=== PATIENT | male | born 1940 | race Caucasian/White ===

== ENCOUNTER 2018-05-30 11:36 | Emergency (ER) | payer MEDICARE, MEDICAID ==
[~2018-05-30] VITALS: Ht 172.7 cm; Wt 59.0 kg
[~2018-05-30 11:36] MED LIST: ACETAMINOPHEN650 M5 PO; ALDACTONE25 MG PO; APAP650 PO; ASPIRIN81 M2 PO; BAYER CHEWABLE81 MG PO; CARVEDILOL3.125 MG PO; CEPACOL SORE T1 EAC7 PO; CLOPIDOGREL75 MG PO; COLACE100 MG PO; COMBIGAN EYE DR10 ML OP; DIFLUCAN10 MG/ML PO; DUREZOL5 ML OPHTHALMIC; IBUPROFEN 200200 M1 PO; KEFLEX500 MG PO; LASIX 40 MG TAB40 M2 PO; LEVAQUIN 500 M500 M2 PO; LIPITOR 20 MG T20 M1 PO; LISINOPRIL2.5 MG PO; MUCINEX TA600 MG/TA2 PO; NITROGLYCERIN0.4 MG SL; PLAVIX 300 MG300 M1 PO; POTASSIUM20 PO; TESSALON PERLE100 M1 PO; TRAVATAN Z5 ML OP; TRAVATAN Z5 ML OPHTHALMIC; TYLENOL325 MG PO; ZOCOR40 MG PO
[2018-05-30] MEDS ORDERED: ASPIR 8181 MG PO (12:22)
[2018-05-30] MEDS ORDERED: POTASSIUM20 PO (12:23)
[2018-05-30] MEDS ORDERED: LASIX 40 MG TAB40 M2 PO (12:24)
[2018-05-30] MEDS ORDERED: NITROGLYCERIN0.4 MG SUBLING (12:26)
[2018-05-30] MEDS ORDERED: STOOL SOFTENER1 EAC3 PO (12:26)
[2018-05-30 14:05] VITALS: BP 129/73
== END 2018-05-30 14:06 | disposition home or self-care (01) ==
LOC: M.ERS 11:36
DX: S90.415A Abrasion, left lesser toe(s), initial encounter (principal); S90.31XA Contusion of right foot, initial encounter; E78.5 Hyperlipidemia, unspecified; I10 Essential (primary) hypertension; Z90.49 Acquired absence of other specified parts of digestive tract; W20.8XXA Other cause of strike by thrown, projected or falling object, initial encounter; Y93.89 Activity, other specified; Y92.89 Other specified places as the place of occurrence of the external cause; Y99.8 Other external cause status

== ENCOUNTER 2018-10-18 17:15 | Inpatient (IN) | payer OTHER, MEDICAID ==
[~2018-10-18] VITALS: Ht 172.7 cm; Wt 57.2 kg
--- NOTE | ~2018-10-18 | EKG ---
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1940 Requested By: David Thomas Order Number: [id number] Reading MD: Measurements Intervals [place] Rate: 52 P: -52 ID: 157 QRS: -55 QRSD: 111 T: 106 QT: 433 QTc: 403 Interpretive Statements Sinus or ectopic atrial rhythm Atrial premature complex Left anterior fascicular block Posterior infarct, old Anteroseptal infarct, old Borderline repolarization abnormality Compared to ECG 07/17/2015 22:31:23 Ectopic atrial rhythm now present Atrial premature complex(es) now present Left anterior fascicular block now present Sinus rhythm no longer present Left-axis deviation no longer present ST (T wave) deviation no longer present Possible ischemia no longer present Myocardial infarct finding still present [email or web address] By: 0 0 Epiphany MD Anderson /SUMEET
[~2018-10-18 17:15] MED LIST changes: +ASPIR 8181 MG PO; +NITROGLYCERIN0.4 MG SUBLING; +STOOL SOFTENER1 EAC3 PO
[2018-10-18 17:19] VITALS: BP 143/74
[2018-10-18] MEDS ORDERED: SINGULAIR 10 MG10 M1 PO (17:26)
[2018-10-18] MEDS ORDERED: ALLERGY25 M2 PO (17:27)
[2018-10-18 17:35] LABS: ABSOLUTE EOSINOPHILS 0.1 thou/uL (0.0-0.7); ABSOLUTE LYMPHOCYTES 1.1 thou/uL (0.8-5.3); ABSOLUTE MONOCYTES 0.4 thou/uL (0.0-1.2); ABSOLUTE NEUTROPHILS 3.4 thou/uL (1.6-8.1); BASOPHILS 0.7 %; EOSINOPHILS 2.6 %; HEMATOCRIT 40.1 % (42.0-52.0); HEMOGLOBIN 13.5 gm/dL (14.0-18.0); LYMPHOCYTES 21.3 %; MCHC 33.8 g/dL (28.0-37.0); MCV 94.7 fL (80.0-100.0); MONOCYTES 7.9 %; MPV 7.7 fl. (7.2-11.1); NUCLEATED RBCS 0 /100WBC; PLATELET COUNT* 165 thou/uL (150-400); POLYS 67.5 %; RBC 4.23 mil/uL (4.50-6.00); RDW-CV 14.7 % (10.5-14.5)
[2018-10-18 17:50] LABS: ANION GAP 9 mmol/L (7-16); BUN 16 mg/dL (7-18); CHLORIDE 99 mmol/L (98-107); CO2 32 mmol/L (21-32); CREATININE 1.4 mg/dL (0.6-1.3); GLUCOSE 95 mg/dL (70-99); POTASSIUM 3.8 mmol/L (3.5-5.1); SODIUM 140 mmol/L (136-145)
[2018-10-18 18:09] LABS: APTT 26.2 Seconds (25.0-31.3); INR 1.1
[2018-10-18 18:11] LABS: ALBUMIN 4.6 g/dL (3.4-5.0); ALKALINE PHOSPHATASE 95 U/L (46-116); CK-MB MASS 1.5 ng/mL (<0.5-3.6); LIPASE 172 U/L (73-393); MAGNESIUM 2.2 mg/dL (1.8-2.4); NT-PRO BRAIN NAT PEPTIDE 2048 pg/mL (<300); SGOT 19 U/L (15-37); SGPT 18 U/L (30-65); TOTAL BILIRUBIN 0.4 mg/dL (<0.1-1.0); TROPONIN-I LEVEL <0.06 ng/mL (<0.06)
[2018-10-18 19:45] VITALS: BP 134/64
[2018-10-18 20:10] VITALS: BP 135/69
[2018-10-18 23:45] VITALS: BP 123/61
[2018-10-19 04:00] VITALS: BP 128/68
[2018-10-19 05:24] LABS: CHOLESTEROL 145 mg/dL (<200); HDL CHOLESTEROL 65 mg/dL (>40); LDL CHOLESTEROL 70 mg/dL (<100); TC:HDL 2.2 Ratio (Not establshd); TRIGLYCERIDE 50 mg/dL (<150); VLDL 10 mg/dL (<40)
[2018-10-19 05:28] LABS: SERUM ASSESSMENT CLEAR
[2018-10-19 12:00] VITALS: BP 115/56
[2018-10-19 16:00] VITALS: BP 121/55
[2018-10-19 20:00] VITALS: BP 121/60
[2018-10-20] VITALS: BP 107/53
[2018-10-20 02:05] LABS: GLYCOHEMOGLOBIN (HGB A1C) 5.7 % (4.8-5.6)
[2018-10-20 04:00] VITALS: BP 126/47
[2018-10-20 05:22] LABS: HEMATOCRIT 34.3 % (42.0-52.0); HEMOGLOBIN 11.9 gm/dL (14.0-18.0); MCH 32.6 pg (26.0-34.0); MCHC 34.5 g/dL (28.0-37.0); MCV 94.4 fL (80.0-100.0); MPV 8.2 fl. (7.2-11.1); RBC 3.64 mil/uL (4.50-6.00); RDW-CV 14.1 % (10.5-14.5); WBC 6.5 thou/uL (4.0-11.0)
[2018-10-20 06:09] LABS: ANION GAP 7 mmol/L (7-16); BUN 17 mg/dL (7-18); CALCIUM 8.5 mg/dL (8.5-10.1); CHLORIDE 103 mmol/L (98-107); CO2 31 mmol/L (21-32); CREATININE 1.2 mg/dL (0.6-1.3); GLUCOSE 74 mg/dL (70-99); MAGNESIUM 2.1 mg/dL (1.8-2.4); POTASSIUM 4.1 mmol/L (3.5-5.1); SODIUM 141 mmol/L (136-145); TROPONIN-I LEVEL <0.06 ng/mL (<0.06)
--- NOTE | 2018-10-20 11:05 | CON ---
[address] [address] CONSULTATION Name: JAMEEL SHAH Room: [address] IN M.R.#: [id number] Admission: 10/18/18 Attend Phys: David Thomas MD Discharge: Date of : 36 Report #: [id number] THIS REPORT FOR: //name// CC: Raf Mike [facility] physician/PCP David Thomas DATE OF SERVICE: 10/19/2018 CARDIOLOGY CONSULTATION HISTORY OF PRESENT ILLNESS: I was asked by Dr. Thomas to see this 78-year-old white male in cardiology consultation for evaluation and treatment of chest pain, which could represent angina. This man has known coronary artery disease. He is status post multiple coronary stents. Unfortunately, he is a poor historian. Additionally, this man has essential hypertension, hyperlipidemia and a small descending thoracic aortic aneurysm. That aneurysm is minimally larger than it was when it was checked in the not too distant past. He came to the Emergency Room last night with about an hour of chest pain. He said it was worse with taking deep breaths. He had walked outside in the cold to get his mail and walked about 100 feet to the mailbox and 100 feet back. The pain he said started in the left upper chest and radiated downward to me. He could not describe the pain particularly, but it did have a sharp quality, but then also a pressure quality, was of 5 of 10 in severity. There was no diaphoresis. There was some shortness of breath. There was no nausea or vomiting. His reported a pulse in the 40s with normal O2 sat during the event, but he was cold. His pain was relieved by the time he got to the Emergency Room. He did not try nitroglycerin. He is not sure if this pain is like previous heart pain or not. PAST MEDICAL HISTORY: As described above. ALLERGIES: He has no known allergies. MEDICATIONS: Include aspirin 81 mg daily, atorvastatin 20 mg daily, Plavix 75 mg daily, Benadryl 25 mg daily, Lasix 40 mg on Sunday, Sunday, Sunday for edema. He also takes potassium 20 mEq 3 times a week with that. He is on Mucinex 600 mg daily, lisinopril 2.5 mg daily, Singulair 10 mg at bedtime, and docusate 1 tablet daily. REVIEW OF SYSTEMS: Negative except as per the history of present illness and past medical history. His chest x-ray was negative. Please see review of system form for details and negatives in review of systems. He had multiple negative troponins, I believe 3 or 4. SOCIAL HISTORY: He has a past history of smoking. [place] [address] CONSULTATION Name: JAMEEL SHAH Room: [address] IN [facility]#: [id number] Admission: 10/18/18 Attend Phys: David Thomas MD Discharge: Date of : 36 Report #: [id number]. Does not drink, does not use illegal drugs. FAMILY HISTORY: Unremarkable. He does have chronic kidney disease stage 3 and prediabetes according to the record. He is said to have had bypass graft surgery in the past with 4 vessels bypassed. He is usually followed by Dr. Mike. PHYSICAL EXAMINATION: VITAL SIGNS: Pulse was 49 and regular, blood pressure 128/68, respirations 16 and regular, temperature 97.9. When I examined him; however, his pulse was 60 and regular. HEENT: Head was atraumatic. Eyes were clear. NECK: Supple. There is no jugular venous distention or hepatojugular reflux. Thyroid is not enlarged. There is no adenopathy. SKIN: Warm and dry. Mucous membranes are moist. LUNGS: Clear to auscultation and percussion. HEART: Revealed normal first and second heart sound. There is soft S4. There is no S3. There are no murmurs, rubs, thrills, heaves or gallops. PMI is nondisplaced. ABDOMEN: Soft, flat, nontender, no palpable masses, no organomegaly. EXTREMITIES: Reveal no cyanosis, clubbing or edema. NEUROLOGIC: The patient mentated normally, talked normally, moved all extremities normally. LABORATORY DATA: His initial EKG when he came to the ER showed sinus rhythm with atrial premature beats. There is an old anteroseptal infarct, probable left anterior fascicular block, left axis deviation, left ventricular hypertrophy and nonspecific ST-T abnormalities. These could be due to ischemia or to his left ventricular hypertrophy. Several EKGs have been done. They all show essentially the same thing. IMPRESSION: 1. Chest pain, possibly angina. 2. Coronary artery disease. 3. Status post coronary stents. 4. Status post bypass graft surgery. 5. Essential hypertension. 6. Hyperlipidemia. 7. Thoracic descending aortic aneurysm. RECOMMENDATION: He should have a nuclear stress test and an echo. Thank you very much for asking me to see the patient. If you have any [address] [address] CONSULTATION Name: JAMEEL SHAH Room: [address] IN .R.#: [id number] Admission: 10/18/18 Attend Phys: David Thomas MD Discharge: Date of : 36 Report #: [id number] questions, please feel free to contact me. Note this man had pains like this last winter in the cold weather. <ELECTRONICALLY SIGNED> By: Hussain Ramirez MD, FACC 10/20/18 1105 [id number]. Derick Ramirez MD, FACC /nt
--- NOTE | 2018-10-20 11:08 | EKG ---
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: : 1940 Requested By: Renato Castillo Order Number: [id number] MD: Uriel Olmos Measurements Intervals [place] Rate: 66 P: 37 ND: 161 QRS: -51 QRSD: 109 T: 93 QT: 409 QTc: 429 Interpretive Statements Sinus rhythm Atrial premature complexes Probable left atrial enlargement Left anterior fascicular block LVH with secondary repolarization abnormality Probable anterior infarct, age indeterminate Compared to ECG 07/17/2015 22:31:23 Atrial premature complex(es) now present Left anterior fascicular block now present Left ventricular hypertrophy now present Early repolarization now present Myocardial infarct finding still present Electronically Signed On 10-20-2018 11:07:55 SUPERVISOR METAL FABRICATING by Uriel Olmos [email or web address] <ELECTRONICALLY SIGNED> By: Uriel Olmos MD, [facility] 10/20/18 1107 [id number] Uriel Olmos MD, [facility] /EPI
--- NOTE | 2018-10-20 11:14 | EKG ---
[place] [address] ELECTROCARDIOGRAM REPORT Name: JAMEEL SHAH Room: [address] ADM IN M.R.#: [id number] Admission: 10/18/18 Attend Phys: David Thomas MD Discharge: Date of : 36 Report #: [id number] THIS REPORT FOR: //name// [facility] Test Date: 2018-10-18 Test Time: 23:44:12 Pat Name: JAMEEL ALYSSA Department: Room: [address] Gender: M Client Care Consultant: SANTI : 1940 Requested By: Renato Castillo Order Number: [id number] Flower MD: Uriel Olmos Measurements Intervals [place] Rate: 45 P: -10 [place]: 166 QRS: -46 QRSD: 109 T: 85 QT: 461 QTc: 399 Interpretive Statements Sinus bradycardia with rare pac's Left anterior fascicular block Anteroseptal infarct, old possible Nonspecific repol abnormality, diffuse leads Compared to ECG 07/17/2015 22:31:23 Left anterior fascicular block now present Early repolarization now present Sinus rhythm no longer present ST (T wave) deviation no longer present Possible ischemia no longer present Myocardial infarct finding still present Electronically Signed On 10-20-2018 11:14:15 SOCIAL PROBLEMS SPECIALIST by Uriel Olmos [email or web address] <ELECTRONICALLY SIGNED> By: Uriel Olmos MD, [facility] 10/20/18 [id number] [id number] Uriel Olmos MD, [facility] /EPI
--- NOTE | 2018-10-20 11:16 | EKG ---
[place] [address] ELECTROCARDIOGRAM REPORT Name: JAMEEL SHAH Room: [address] ADM IN M.R.#: [id number] Admission: 10/18/18 Attend Phys: David Thomas MD Discharge: Date of : 36 Report #: [id number] THIS REPORT FOR: //name// [facility] Test Date: 2018-10-19 Test Time: 05:31:58 Pat Name: JAMEEL SHAH Department: Room: [address] Gender: M Caustic Preparer: LHUPP : 1940 Requested By: Renato Castillo Order Number: [id number] Reading MD: Uriel Olmos Measurements Intervals [place] Rate: 52 P: -52 [place]: 157 QRS: -55 QRSD: 111 T: 106 QT: 433 QTc: 403 Interpretive Statements Sinus rhythm Atrial premature complex, Left anterior fascicular block Possible old anteroseptal CT Borderline repolarization abnormality Compared to ECG 07/17/2015 22:31: Atrial premature complex(es) now present Left anterior fascicular block now present Left-axis deviation no longer present ST (T wave) deviation no longer present Possible ischemia no longer present Myocardial infarct finding still present Electronically Signed On 10-20-2018 11:16:12 TECHNICAL SUPPORT ENGINEER by Uriel Olmos [email or web address] <ELECTRONICALLY SIGNED> By: Uriel Olmos MD, [facility] 10/20/18 1116 0531 Uriel Olmos MD, [facility] /EPI
[2018-10-20 12:46] VITALS: BP 99/68
[2018-10-20 15:59] VITALS: BP 119/92
[2018-10-20 19:32] VITALS: BP 136/71
[2018-10-21] VITALS (7 sets, daily range): BP systolic 107–125; BP diastolic 57–68
[2018-10-21 04:44] LABS: HEMATOCRIT 32.8 % (42.0-52.0); HEMOGLOBIN 11.3 gm/dL (14.0-18.0); MCH 32.5 pg (26.0-34.0); MCHC 34.4 g/dL (28.0-37.0); MCV 94.2 fL (80.0-100.0); MPV 7.9 fl. (7.2-11.1); RBC 3.48 mil/uL (4.50-6.00); RDW-CV 14.2 % (10.5-14.5); WBC 6.9 thou/uL (4.0-11.0)
[2018-10-21 05:01] LABS: CALCIUM 8.4 mg/dL (8.5-10.1); CREATININE 1.3 mg/dL (0.6-1.3)
[2018-10-21] MEDS ORDERED: NITROGLYCERIN0.4 MG SUBLING (08:55)
[2018-10-21] MEDS ORDERED: SINGULAIR 10 MG10 M1 PO (15:36)
--- NOTE | 2018-10-21 16:44 | 2DMMODE ---
[place] [address] 2 D/M-MODE ECHOCARDIOGRAM Name: JAMEEL SHAH Room: [address] IN [facility]#: [id number] Admission: 10/18/18 Attend Phys: David Thomas, Discharge: Date of : 36 Date of Service: 10/21/18 1643 Report #: [id number] THIS REPORT FOR: //name// APPROVED REPORT Study performed: 10/21/2018 14:54:18 EXAM: Comprehensive 2D, Doppler, and color-flow Echocardiogram Patient Location: In-Patient Room #: [facility] BSA: 1.66 HR: 65 bpm BP: 115/60 mmHg Other Information Study Quality: Good Indications CAD 2D Dimensions IVSd: 10.79 (7-11mm) LVOT Diam: 20.89 (18-24mm) LVDd: 49.38 mm PWd: 10.40 (7-11mm) Ascending Ao: 32.53 (22-36mm) LVDs: 41.00 (25-40mm) Aortic Root: 30.58 mm Volumes Left Atrial Volume (Systole) LA ESV Index: 19.40 mL/m2 Aortic Valve AoV Peak Jerman.: 0.84 m/s AO Peak Gr.: 2.84 mmHg LVOT Max P.40 mmHg AO Mean Gr.: 1.65 mmHg LVOT Mean P.63 mmHg LVOT Max V: 0.59 m/s AO V2 VTI: 16.33 cm LVOT Mean V: 0.36 m/s REJI (VTI): 2.88 cm2 LVOT V1 VTI: 13.71 cm Mitral Valve E/A Ratio: 0.83 MV Decel. Time: 422.68 ms MV E Max Jerman.: 0.49 m/s MV PHT: 122.58 [place] [address] 2 D/M-MODE ECHOCARDIOGRAM Name: JAMEEL SHAH Room: [address] IN [facility].#: [id number] Admission: 10/18/18 Attend Phys: David Thomas, Discharge: Date of : 36 Date of Service: 10/21/18 1643 Report #: [id number] MVA (PHT): 1.79 cm2 TDI E/Lateral E': 3.50 E/Medial E': 6.13 Medial E' Jerman.: 0.08 m/s Lateral E' Jerman.: 0.14 m/s Pulmonary Valve PV Peak Jerman.: 0.74 m/s PV Peak Gr.: 2.19 mmHg Left Ventricle Left ventricle is mildly dilated. There is diffuse hypokinesis of left ventricular wall motion with inferoapical akinesis. There is normal left ventricular wall thickness. Left ventricular systolic function is moderate to severely decreased. LVEF is 35%. Grade I - abnormal relaxation pattern. Right Ventricle The right ventricle is normal size. The right ventricular systolic function is normal. Atria The left atrium size is normal. The right atrium size is normal. Aortic Valve Mild aortic valve sclerosis. No aortic regurgitation is present. There is no aortic valvular stenosis. Mitral Valve The mitral valve is normal in structure. Mild mitral regurgitation. No evidence of mitral valve stenosis. Tricuspid Valve The tricuspid valve is normal in structure. There is no tricuspid valve regurgitation noted. Pulmonic Valve The pulmonary valve is normal in structure. There is no pulmonic valvular regurgitation. Great Vessels The aortic root is normal in size. IVC is normal in size and collapses >50% with [place] [address] 2 D/M-MODE ECHOCARDIOGRAM Name: JAMEEL SHAH Room: [address] IN [facility]#: [id number] Admission: 10/18/18 Attend Phys: David Thomas, Discharge: Date of : 36 Date of Service: 10/21/18 1643 Report #: [id number] There is no pericardial effusion. <Conclusion> Left ventricle is mildly dilated. There is normal left ventricular wall thickness. Left ventricular systolic function is moderate to severely decreased. LVEF is 35%. Grade I - abnormal relaxation pattern. The right ventricle is normal size. The left atrium size is normal. Mild aortic valve sclerosis. No aortic regurgitation is present. There is no aortic valvular stenosis. The mitral valve is normal in structure. Mild mitral regurgitation. IVC is normal in size and collapses >50% with inspiration. There is no pericardial effusion. There is diffuse hypokinesis of left ventricular wall motion with inferoapical akinesis. <ELECTRONICALLY SIGNED> By: Uriel Olmos MD, FACC 10/21/18 164 42 42 Uriel Olmos MD, FACC /INF
--- NOTE | 2018-10-21 17:13 | CARDNUC ---
[place] [address] CARDIAC NUCLEAR IMAGING REPORT Name: JAMEEL SHAH Room: [address] IN [facility]#: [id number] Admission: 10/18/18 Attend Phys: David Thomas, Discharge: Date of : 36 Date of Service: 10/21/18 1713 Report #: [id number] THIS REPORT FOR: //name// APPROVED REPORT Study performed: 10/19/2018 14:06:00 Indication: Chest pain, Dyspnea Patient Location: In-Patient Room #: 226 Stress Nurse: Grace Robles RN Ht: 5 ft 7 in Wt: 126 lbs BSA: 1.66 m2 HR: 59 bpm BP: 138//79 mmHg BMI: 19.73 Rhythm: NSR, APC's Medical History Medical History: HTN, Hyperlipidemia, CAD s/p CABG, CAD s/p LA, CAD s/p stent Allergies: No known drug allergies Cardiac Risk Factors: HTN, Age, Hyperlipidemia Previous Cardiac Procedures: CABG, PCI, Myocardial infarction Pretest Chest Pain Characteristics: No chest pain Exercise History: Sedentary Physical Disabilities: Knees Resting Data Rest SPECT myocardial perfusion imaging was performed in supine position 30 minutes following the intravenous injection of 10.4 mCi of Tc-99m Sestamibi. Time of rest injection: 11:15 The images were gated to evaluate regional wall motion and calculate left ventricular ejection fraction. Administration Route: IV Administration Site: Right Wrist Pharmacologic Stress Pharmacologic stress test was performed by injecting Regadenoson 0.4 mg IV push over 10-15 seconds immediately followed by the intravenous injection of 28.3 mCi of Tc-99m Sestamibi. Time of stress injection: 1245 Administration Route: IV Administration Site: Right Wrist Heart Rate at time of stress injection: 90 [place] [address] CARDIAC NUCLEAR IMAGING REPORT Name: JAMEEL SHAH Room: [address]#: [id number] Admission: 10/18/18 Attend Phys: David Thomas, Discharge: Date of : 36 Date of Service: 10/21/18 1713 Report #: [id number] Gated Stress SPECT was performed 40 minutes after stress injection. The images were gated to evaluate regional wall motion and calculate left ventricular ejection fraction. Prone imaging was performed. Stress Test Details Stress Test: Pharmacologic stress testing performed using 0.4 mg of regadenoson per 5 mL given IV over 10 seconds. HR Max Heart Rate (APMHR): 140 bpm Resting HR: 59 bpm Target HR (85% APMHR): 119 bpm Max HR Achieved: 90 bpm % of APMHR: 64 Recovery HR: 90 bpm BP Resting BP: 138/79 mmHg Max BP: 143/71 mmHg Recovery BP: 143/73 mmHg BP response to stress: Normal blood pressure response to stress. ECG Resting ECG: sinus rhythm with nonspecific ST segment depression Stress ECG: sinus rhythm with nonspecific ST segment depression ST Change: None Arrhythmia: None Recovery ECG: sinus rhythm with nonspecific ST segment depression Recovery ST Change: None Recovery Arrhythmia: None Clinical Reason for Termination: Completed protocol Stress Symptoms: None The patient tolerated Lexiscan infusion without significant symptoms. Stress ECG Conclusion The baseline 12-lead EKG shows sinus rhythm with nonspecific ST segment depression noted in the inferolateral leads. There are occasional unifocal premature ventricular contractions. EKGs obtained during and post Lexiscan infusion showed sinus [place] [address] CARDIAC NUCLEAR IMAGING REPORT Name: JAMEEL SHAH Room: [address]#: [id number] Admission: 10/18/18 Attend Phys: David Thomas, Discharge: Date of : 36 Date of Service: 10/21/18 1713 Report #: [id number] or T wave changes when compared to baseline. There were no significant stress-induced arrhythmias. Study Quality Study: Good Study Data At rest, the left ventricular ejection fraction was 32%.. Post stress, the left ventricular ejection was 30%.. TID = 0.95. Perfusion Perfusion images at rest show a moderate size severe intensity defect in the apex. There is a moderate size moderate intensity area of photopenia involving the mid anterior wall. Perfusion defects obtained post Lexiscan stress show a persistent apical defect. There is a focal persistent mid anterior wall defect. No reversible defects were identified. Wall Motion There is a septal wall motion abnormality noted consistent with prior bypass procedure. Additionally there is hypokinesis of the mid to distal anteroapical anteroseptal wall. Nuclear Conclusion ECG Findings: non-diagnostic Clinical Findings: negative for ischemia Nuclear Findings: negative for ischemia Exercise Capacity: not assessed Left Ventricular Function: abnormal Myocardial perfusion images show prior defects that appear to be fixed involving the apex and mid anterior wall possibly consistent with prior infarct. There is severe global hypokinesis with focal wall motion abnormalities as outlined above. There were no reversible defects to suggest ongoing ischemia. This appears to be at least a moderate risk study based on significant left ventricular systolic dysfunction in a pattern consistent with ischemic cardiomyopathy. <Conclusion> The baseline 12-lead EKG shows sinus rhythm with nonspecific ST segment depression noted in the inferolateral leads. There are occasional unifocal premature ventricular contractions. EKGs obtained during and post Lexiscan infusion showed sinus [place] [address] CARDIAC NUCLEAR IMAGING REPORT Name: JAMEEL SHAH Room: [address] IN [facility]#: [id number] Admission: 10/18/18 Attend Phys: David Thomas, Discharge: Date of : 36 Date of Service: 10/21/18 1713 Report #: [id number] or T wave changes when compared to baseline. There were no significant stress-induced arrhythmias. <ELECTRONICALLY SIGNED> By: Catracho Casanova MD, FACC 10/21/181712 12 12 Catracho Casanova MD, FACC /INF
[2018-10-22] VITALS: BP 130/64
[2018-10-22 04:00] VITALS: BP 101/58
[2018-10-22 08:03] VITALS: BP 120/59
[2018-10-22 09:39] VITALS: BP 120/59
--- NOTE | 2018-10-23 07:54 | CON ---
[address] [address] CONSULTATION Name: JAMEEL SHAH Room: [address]#: [id number] Admission: 10/18/18 Attend Phys: David Thomas MD Discharge: 10/22/18 Date of : 36 Report #: [id number] THIS REPORT FOR: //name// CC: Raf Mike [facility] physician/PCP David Thomas DATE OF SERVICE: 10/19/2018 REQUESTING PHYSICIAN: David Thomas MD REASON FOR CONSULTATION: Thoracoabdominal aortic aneurysm. HISTORY OF PRESENT ILLNESS: The patient is a very pleasant 78-year-old white male who presented to the ER last night with chest pain. He has undergone extensive workup including a CT angiogram to evaluate for pulmonary embolism. This was negative for pulmonary embolism, but did show new finding of descending aortic aneurysm measuring 4.5 cm in maximum diameter. This is located near the diaphragmatic hiatus. This was not present 4 years ago on previous scan. The patient's chest pain has resolved. He is currently undergoing cardiac workup. REVIEW OF SYSTEMS: A 12-point review of systems was reviewed and negative as per HPI. PAST MEDICAL HISTORY: Significant for bradycardia, chest pain, hypertension, hyperlipidemia, coronary artery disease, IA in 2013, glaucoma. PAST SURGICAL HISTORY: Significant for CABG, appendectomy, hernia repair, eye surgery for glaucoma. HOME MEDICATIONS: Include Lasix, Lipitor, Mucinex, Zestril, aspirin, K-Dur, stool softener, Singulair, Benadryl, and Plavix. ALLERGIES: No known drug allergies. SOCIAL HISTORY: The patient quit smoking 6-7 years ago when he has heart attack. Denies alcohol or drug use. PHYSICAL EXAMINATION: GENERAL: The patient is in no acute distress. He is alert and oriented. VITAL SIGNS: Afebrile. Vital signs stable. HEENT: Normocephalic, atraumatic. NECK: Supple. Carotid bruit on the left. HEART: Regular. LUNGS: Clear. ABDOMEN: Soft, nontender, [place] [address] CONSULTATION Name: JAMEEL SHAH Room: [address]#: [id number] Admission: 10/18/18 Attend Phys: David Thomas MD Discharge: 10/22/18 Date of : 36 Report #: [id number] EXTREMITIES: Warm and well perfused. He has increased pulsation of his popliteal arteries bilaterally. No abdominal pulsation to suggest aneurysm of his abdominal aorta. NEUROLOGIC: Grossly intact. 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 RECOMMENDATIONS: 1. Would not recommend surgical intervention at this time on thoracoabdominal aortic aneurysm based on size. 2. We will check abdominal duplex to rule out abdominal aortic aneurysm, although no abdominal pulsation on exam. 3. We will check bilateral lower extremity arterial duplex given increased pulsation of popliteal arteries bilaterally and propensity for popliteal aneurysms in patients with aneurysms of the abdominal and thoracic aorta. 4. We will check carotid duplex. Thank you very much for involving us in the care of this very pleasant patient. Please feel free to call me if you have any questions or concerns about the assessment and plan. <ELECTRONICALLY SIGNED> By: Gorge Chowdary DO 10/23/18 0754 1323 [id number] Kinney MD /nt
== END 2018-10-22 12:16 | disposition home or self-care (01) | DRG 682 ==
LOC: M.ERS 17:15 → M.TBA-ER 18:02 → M.2W 18:02
PROVIDERS: Family Medicine; ADMIT Internal Medicine
DX: N17.0 Acute kidney failure with tubular necrosis (principal); I50.43 Acute on chronic combined systolic (congestive) and diastolic (congestive) heart failure; I25.110 Atherosclerotic heart disease of native coronary artery with unstable angina pectoris; I71.6 Thoracoabdominal aortic aneurysm, without rupture; J98.01 Acute bronchospasm; H40.9 Unspecified glaucoma; J44.9 Chronic obstructive pulmonary disease, unspecified; E78.5 Hyperlipidemia, unspecified; I12.9 Hypertensive chronic kidney disease with stage 1 through stage 4 chronic kidney disease, or unspecified chronic kidney disease; N18.3 Chronic kidney disease, stage 3 (moderate); R73.03 Prediabetes; Z79.899 Other long term (current) drug therapy; Z95.1 Presence of aortocoronary bypass graft; Z95.5 Presence of coronary angioplasty implant and graft; I25.2 Old myocardial infarction; Z90.49 Acquired absence of other specified parts of digestive tract; Z79.82 Long term (current) use of aspirin

== ENCOUNTER 2018-10-30 12:38 | Inpatient (IN) | payer OTHER, MEDICAID ==
[~2018-10-30] VITALS: Ht 172.7 cm; Wt 54.0 kg
[~2018-10-30 12:38] MED LIST changes: +ALLERGY25 M2 PO; +SINGULAIR 10 MG10 M1 PO
[2018-10-30 12:51] VITALS: BP 116/63
[2018-10-30] MEDS ORDERED: MUCINEX D ER 61 EACH PO (13:00)
[2018-10-30 13:24] LABS: HEMATOCRIT 33.2 % (42.0-52.0); HEMOGLOBIN 11.4 gm/dL (14.0-18.0); MCH 32.1 pg (26.0-34.0); MCHC 34.4 g/dL (28.0-37.0); MCV 93.5 fL (80.0-100.0); MPV 7.2 fl. (7.2-11.1); NUCLEATED RBCS 0 /100WBC; PLATELET COUNT* 160 thou/uL (150-400); RBC 3.55 mil/uL (4.50-6.00); WBC 7.9 thou/uL (4.0-11.0)
[2018-10-30 13:33] LABS: CALCIUM 8.6 mg/dL (8.5-10.1); CREATININE 1.5 mg/dL (0.6-1.3)
[2018-10-30 13:37] LABS: ALBUMIN 3.4 g/dL (3.4-5.0); TOTAL BILIRUBIN 0.6 mg/dL (<0.1-1.0); TOTAL PROTEIN 6.6 g/dL (6.4-8.2)
[2018-10-30 13:43] LABS: INFLUENZA A ANTIGEN None Detected (None Detect); INFLUENZA B ANTIGEN None Detected (None Detect)
[2018-10-30 14:05] LABS: ABSOLUTE LYMPHOCYTES 0.4 thou/uL (0.8-5.3); ABSOLUTE MONOCYTES 0.5 thou/uL (0.0-1.2); OVALOCYTES 1+; PLATELET ESTIMATE ADEQUATE
[2018-10-30 14:06] LABS: POIKILOCYTOSIS Occasional
[2018-10-30 14:21] LABS: NT-PRO BRAIN NAT PEPTIDE 3230 pg/mL (<300); TROPONIN-I LEVEL <0.06 ng/mL (<0.06)
[2018-10-30 19:21] VITALS: BP 98/52
[2018-10-30 19:40] VITALS: BP 109/57
[2018-10-31] VITALS: BP 100/52
--- NOTE | 2018-10-31 02:29 | NUR ---
TRANSFER FROM ED AT 1940 RECIEVED REPORT AND ASSUMED CARE AT THAT TIME. DIE TECHNICIAN IN PLACE. VITAL SIGNS STABLE. PT UP WITH ASSIST X 1. PT DENIED ANY PAIN. ASSESSMENT COMPLETED, DISCUSSED PLAN OF CARE, AND PT UNDERSTANDS. BED LOCKED, AND CALL LIGHT WITHIN REACH. FALL PRECAUTIONS IN PLACE. HOURLY ROUNDING DONE AND ALL NEEDS MET. PT RUNNING LOW FEVER AND PRN MEDS GIVEN FOR FEVER. NURSING WILL CONTINUE TO MONITOR.
[2018-10-31 04:00] VITALS: BP 95/53
[2018-10-31 07:31] LABS: URINE BILIRUBIN NEGATIVE (Negative); URINE BLOOD 1+ (Negative); URINE CLARITY CLEAR; URINE COLOR YELLOW; URINE GLUCOSE-RANDOM NEGATIVE (Negative); URINE KETONES NEGATIVE (Negative); URINE LEUKOCYTES-REFLEX NEGATIVE (Negative); URINE NITRITE-REFLEX NEGATIVE (Negative); URINE PROTEIN TRACE (Negative); URINE SPECIFIC GRAVITY 1.025 (1.005-1.030); URINE UROBILINOGEN 0.2 E.U./dl (0.2-1.0)
[2018-10-31 07:59] LABS: BACTERIA-REFLEX 1-9 Few /HPF (None Seen); CASTS None Seen /LPF (None Seen); CRYSTALS None Seen /LPF (None Seen); MUCUS 4-6 Moderate strn/LPF (None Seen); SQUAMOUS 4-10 Moderate /LPF (0-3); URINE RBC 3-10 Few /HPF (0-2); URINE WBC-REFLEX 0-5 Rare /HPF (0-5)
[2018-10-31 08:00] VITALS: BP 105/54
--- NOTE | 2018-10-31 10:26 | NUR ---
Pt is A&O. Resides at home alone. Independent with ADLs. Pt stated that he is able to prepare light meals and completes light house cleaning. Pt does not drive any longer post a heart attack. Pt stated that his cousin, Feli, is supportive and involved in POC. Feli provides all transportation and sets up Pt's meds. Feli also takes Pt out to dinner several nights/week. Pt stated that he also has many friends in the apartment complex that he resides in. Pt uses a walking stick for mobility. Hx of HH, but does not recall with which agency. Hx of cardiac rehab. Goal is home at ok, Pt open to HH if needed.
[2018-10-31 12:17] VITALS: BP 89/53
--- NOTE | 2018-10-31 12:19 | NUR ---
VSS, ASSUMED CARE THIS AM, ASSESSMENT PEROFRMED AND CHARTED, FALL PRECAUTIONS IN PLACE AND CALL LIGHT IN REACH, PT IS A&O4, UP WITH ONE TO BEDSIDE, PT IS ON RA, TRACING SR ON THE MONITOR, PT GAOL IS TO IMPROVE BREATHING AND SIT UP IN CHAIR, WORK WITH PT/OT. PT HAS A DRY COUGH, WILL FOLLOW WITH PLAN OF CARE.
[2018-10-31 15:51] VITALS: BP 97/49
--- NOTE | 2018-10-31 16:31 | EKG ---
[place] [address] ELECTROCARDIOGRAM REPORT Name: JAMEEL SHAH Room: [address] ADM IN M.R.#: [id number] Admission: 10/30/18 Attend Phys: Bradley Gale MD Discharge: Date of : 36 Report #: [id number] THIS REPORT FOR: //name// [facility] ED Test Date: 2018-10-30 Test Time: 14:06:21 Pat Name: JAMEEL SHAH Department: Room: [facility] Gender: M Final Assembly And Packing Supervisor: NATHANAEL : 1940 Requested By: Alexus Benavidez Order Number: [id number] MD: Uriel Olmos Measurements Intervals [place] Rate: 67 P: -54 MT: 155 QRS: -57 QRSD: 111 T: 106 QT: 380 QTc: 401 Interpretive Statements Ectopic atrial rhythm Multiple premature complexes, vent & supraven Left anterior fascicular block Posterior infarct, old Anteroseptal infarct, old posssible Repol abnrm suggests ischemia, anterolateral Baseline wander in lead(s) V1 Compared to ECG 10/19/2018 05:31:58 Ectopic atrial rhythm now present Possible ischemia now present Sinus rhythm no longer present Myocardial infarct finding still present Electronically Signed On 10-31-2018 16:30:46 REFRIGERATOR GLAZIER by Uriel Olmos [email or web address] <ELECTRONICALLY SIGNED> By: Uriel Olmos MD, [facility] 10/31/18 1630 1406 1406 Uriel Olmos MD, [facility] /EPI
--- NOTE | 2018-10-31 18:04 | NUR ---
VSS, PT HAS PROGRESSED TOWARD GOAL, HAS WORKED WITH PT/OT, HAS BEEN UP IN CHAIR, CHART CHECKED AND HOURLY ROUNDS COMPLETED.
[2018-10-31 20:00] VITALS: BP 118/59
[2018-11-01] VITALS: BP 108/42
[2018-11-01 04:00] VITALS: BP 120/64
--- NOTE | 2018-11-01 05:18 | NUR ---
ASSUMED PT CARE @ 1930. PT C/O SORE THROAT R/T COUGH. TYLENOL AND TESSALON PEARLS GIVEN. PT HAD LOW GRADE TEMP AT MIDNIGHT. VSS @ 0400. STANDBY ASSIST WHEN PT USES URINAL PT PREFERS TO STANDUP AND USES WALKER. PT ONLY SLEPT A COUPLE OF HOURS BUT REPORTED "I GOT SOME REALLY GOOD SLEEP LAST NIGHT." PT HAS HAD DRY COUGH OFF AND ON AND STATES "I HAVEN'T BEEN ABLE TO COUGH ANYTHING UP." PT IS CURRENTLY WATCHING NEWS AND DRINKING COFFEE. CALL LIGHT IN REACH. HOURLY ROUNDING FOR SAFEFTY.
[2018-11-01 08:11] VITALS: BP 111/60
[2018-11-01 08:45] LABS: HEMATOCRIT 37.4 % (42.0-52.0); HEMOGLOBIN 13.1 gm/dL (14.0-18.0); MCH 32.6 pg (26.0-34.0); MCHC 35.1 g/dL (28.0-37.0); MCV 92.6 fL (80.0-100.0); MPV 8.1 fl. (7.2-11.1); RBC 4.04 mil/uL (4.50-6.00); RDW-CV 14.4 % (10.5-14.5); WBC 10.4 thou/uL (4.0-11.0)
[2018-11-01 08:55] LABS: CALCIUM 8.7 mg/dL (8.5-10.1); CREATININE 1.4 mg/dL (0.6-1.3); MAGNESIUM 1.9 mg/dL (1.8-2.4); POTASSIUM 3.6 mmol/L (3.5-5.1)
--- NOTE | 2018-11-01 10:42 | NUR ---
[facility] is able to accept Pt for HH. If Pt dc over the weekend, fax orders to [phone].
[2018-11-01 12:00] VITALS: BP 91/53
[2018-11-01 16:00] VITALS: BP 84/47
[2018-11-01 20:00] VITALS: BP 106/57
[2018-11-02 00:15] VITALS: BP 96/52
[2018-11-02 04:00] VITALS: BP 97/73
[2018-11-02 04:53] LABS: HEMATOCRIT 32.7 % (42.0-52.0); HEMOGLOBIN 11.2 gm/dL (14.0-18.0); MCH 31.6 pg (26.0-34.0); MCHC 34.3 g/dL (28.0-37.0); MCV 92.3 fL (80.0-100.0); MPV 7.7 fl. (7.2-11.1); RBC 3.54 mil/uL (4.50-6.00); RDW-CV 14.3 % (10.5-14.5); WBC 6.8 thou/uL (4.0-11.0)
[2018-11-02 05:13] LABS: ALBUMIN 2.4 g/dL (3.4-5.0); CREATININE 1.3 mg/dL (0.6-1.3); MAGNESIUM 1.9 mg/dL (1.8-2.4); TOTAL BILIRUBIN 0.4 mg/dL (<0.1-1.0); TOTAL PROTEIN 5.1 g/dL (6.4-8.2)
--- NOTE | 2018-11-02 06:55 | NUR ---
ASSUMED PT CARE @ 1930. PT A+0 X 4. PT REPORTS COUGH BUT NO SOA REPORTED OR OBSERVED. DR NOTIFIED PT HAD DIFFICULTY SLEEPING LAST NIGHT. SLEEP MED ORDERED BUT PT FELL ASLEEP BEFORE NIGHT MED GIVEN. PT DID HAVE LOW GRADE TEMP THIS AM. TYLENOL GIVEN. PT TRACING SA THROUGHOUT SHIFT, CALL LIGHT IN REACH. HOURLY ROUNDING FOR SAFETY.
[2018-11-02 08:15] VITALS: BP 114/66
[2018-11-02 11:52] VITALS: BP 103/58
[2018-11-02 16:00] VITALS: BP 101/63
--- NOTE | 2018-11-02 18:03 | NUR ---
ASSUMED PT CARE AT 0730, FULL ASSESMENT DONE CHARTED. PT A/O X4, IS [place] AND BLIND, PT ABLE TO SEE SOME, PT HELPED TO EAT, UP WITH SBA, SR/PVC/PAC/BBB ON THE MONITOR. VSS, AFEBRILE THIS SHIFT, ON RA, SATS 93%. PT STATES HE IS "FEELING BETTER TODAY", WALKING IN [place] WITH STAFF. FALL PRECAUTIONS IN PLACE, USES CALL LIGHT APPRIATLY.
[2018-11-02 19:56] VITALS: BP 99/62
[2018-11-03] VITALS (7 sets, daily range): BP systolic 95–118; BP diastolic 55–65
--- NOTE | 2018-11-03 03:40 | NUR ---
ASSUMED PT CARE @ 1930. PT A+OX4. PT DENIES SOA. ABLE TO HAVE A PRODUCTIVE COUGH- SPUTUM SAMPLE SENT TO LAB. PT WAS GIVEN TYLENOL FOR SORE THROAT AND MELATONIN FOR SLEEP. SLEPT OFF AND ON THROUGH SHIFT. CALL LIGHT IN REACH. HOURLY ROUNDING FOR SAFETY.
[2018-11-03 05:00] LABS: HEMATOCRIT 30.3 % (42.0-52.0); HEMOGLOBIN 10.4 gm/dL (14.0-18.0); MCH 31.9 pg (26.0-34.0); MCHC 34.4 g/dL (28.0-37.0); MCV 92.7 fL (80.0-100.0); MPV 8.1 fl. (7.2-11.1); RBC 3.27 mil/uL (4.50-6.00); RDW-CV 14.3 % (10.5-14.5); WBC 5.6 thou/uL (4.0-11.0)
[2018-11-03 05:15] LABS: ALBUMIN 2.2 g/dL (3.4-5.0); CREATININE 1.2 mg/dL (0.6-1.3); MAGNESIUM 1.9 mg/dL (1.8-2.4); POTASSIUM 3.4 mmol/L (3.5-5.1); TOTAL BILIRUBIN 0.3 mg/dL (<0.1-1.0); TOTAL PROTEIN 5.4 g/dL (6.4-8.2)
--- NOTE | 2018-11-03 16:54 | NUR ---
I ASSUMED CARE OF THE PATIENT AT 0700. HE IS ALERT AND ORIENTED X4 AND IS UP WITH ASSIST OF ONE. BED IS IN THE LOW LOCKED POSITION AND CALL LIGHT IS IN REACH. HOURLY ROUNDING WAS COMPLETED AND PATIENT NEEDS ARE MET. PAIN IS DENIED. PATIENT NEEDS HELP WITH TRAY FOR SETUP ONLY. PATIENT HAS BEEN AFEBRILE ALL DAY. POTASSIUM WAS REPLACED. WILL CONTINUE TO MONITOR.
[2018-11-04 04:00] VITALS: BP 111/63
--- NOTE | 2018-11-04 04:54 | NUR ---
REPORT RECEIVED FROM OFF GOING SHIFT. CARE ASSUMMED. PT AAOX4 RESP REG AND UNALBORED SKIN W/D NO ACUTE DISTRESS NOTED. ANIMAL CONTROL SPECIALIST INTACT WITH ALARMS SET. PT STATED HE WAS FEELING MUCH BETTER TODAY. PT STATES HE SAT IN CHAIR MOST OF THE DAY HOPING TO BUILD STRENGTH BACK UP. VSS AND NO ACUTE CHANGES DURING SHIFT WILL CONTINUE TO MONITOR
[2018-11-04 08:00] VITALS: BP 122/64
--- NOTE | 2018-11-04 08:00 | NUR ---
ASSUMED PT CARE AT 0700, PT SITTING UP IN CHAIR, OPTICAL INSTRUMENT REPAIRER TRACING SINUS RHYTHM ON THE OPTICAL INSTRUMENT REPAIRER. LS DIMINISHED IN ALL LOBES, 95% RA. PT DENIES ANY PAIN AT THIS TIME.
[2018-11-04 11:50] VITALS: BP 117/68
[2018-11-04] MEDS ORDERED: AUGMENTIN 875-1 EACH PO (13:52)
[2018-11-04 15:16] VITALS: BP 117/68
[2018-11-04 15:25] VITALS: BP 117/68
--- NOTE | 2018-11-04 15:28 | NUR ---
Pt discharging to home today with [facility] HH. Faxed dc orders.
[2018-11-04 15:29] VITALS: BP 117/68
--- NOTE | 2018-11-04 15:52 | NUR ---
PT DISCHARGED HOME VIA WC TO EXTENDED FAMILY IN CAR. EDUCATED PT ON ALL DISCHARGE INSTRUCTIONS, F/U APPT, NEW MEDICATIONS, PT STATES UNDERSTANDING. LICENSED FINAL EXPENSE AGENTS AND IV DISCONTINUED.
== END 2018-11-04 15:54 | disposition home health service (06) | DRG 178 ==
LOC: M.ERS 12:38 → M.2W 15:50 → M.TBA-ER 15:50 → M.2W 19:38
PROVIDERS: Internal Medicine; Nurse Practitioner Family; ADMIT Family Medicine
DX: J15.6 Pneumonia due to other Gram-negative bacteria (principal); E87.1 Hypo-osmolality and hyponatremia; E44.1 Mild protein-calorie malnutrition; Z68.1 Body mass index [BMI] 19.9 or less, adult; J44.0 Chronic obstructive pulmonary disease with (acute) lower respiratory infection; E78.5 Hyperlipidemia, unspecified; H40.9 Unspecified glaucoma; N18.3 Chronic kidney disease, stage 3 (moderate); I71.2 Thoracic aortic aneurysm, without rupture; I12.9 Hypertensive chronic kidney disease with stage 1 through stage 4 chronic kidney disease, or unspecified chronic kidney disease; R73.03 Prediabetes; I25.10 Atherosclerotic heart disease of native coronary artery without angina pectoris; Z95.1 Presence of aortocoronary bypass graft; I25.2 Old myocardial infarction; Z87.891 Personal history of nicotine dependence; Z95.5 Presence of coronary angioplasty implant and graft; Z79.82 Long term (current) use of aspirin; Z79.899 Other long term (current) drug therapy

== ENCOUNTER → 2018-11-15 | Outpatient (CLI) | payer OTHER, MEDICAID ==
[~2018-11-15] MED LIST changes: +AUGMENTIN 875-1 EACH PO; +MUCINEX D ER 61 EACH PO
== END ==
LOC: M.RAD 14:50
DX: J44.9 Chronic obstructive pulmonary disease, unspecified (principal)

== ENCOUNTER 2021-11-21 11:19 | Inpatient (IN) | payer OTHER, MEDICAID ==
[~2021-11-21] VITALS: Ht 172.7 cm; Wt 57.2 kg
--- NOTE | ~2021-11-21 | PROC ---
[address] [address] PROCEDURE REPORT Name: JAMEEL SHAH Room: [address] IN .R.#: [id number] Admission: 11/21/21 Attend Phys: Jaimie Israel MD Discharge: Date of : 38 Report #: [id number] THIS REPORT FOR: cc: FAM - Clinic physician unknown FAM - Clinic physician unknown [facility],Medical Records Staff ~ For GI report, please see the Provation report in Perceptive 7 content. By: 0700Medical Records Staff LANDON /FREDRICK
--- NOTE | ~2021-11-21 | CON ---
[address] [address] CONSULTATION Name: ALYSSAJAMEEL Olive Room: [address] IN M.R.#: [id number] Admission: 11/21/21 Attend Phys: Jaimie Israel MD Discharge: Date of : 38 Report #: [id number] THIS REPORT FOR: cc: [facility] - Clinic physician unknown [facility] - Clinic physician unknown Wily Dunn MD ~ cc: Raf Mike MD [facility] DATE OF CONSULTATION: 11/23/2021 PRIMARY CARE PHYSICIAN: Unknown. Please note at the time of this dictation, the patient was seen and physically examined by myself. REASON FOR CONSULTATION: Anemia. HISTORY OF PRESENT ILLNESS: This is an 81-year-old male who was admitted for episodes of confusion. Apparently, the patient has seen Dr. Mike's group, which has been over a year ago and has a history of cardiomyopathy. He did have an echocardiogram in 2018 that showed an EF of 35%. Apparently, he has been very active, but does have a history of dementia. He states he has not been as active as he had been in the past; however, his neighbor apparently found him outside and he had been out there all night. He had apparently fell. The patient states he got really dizzy and fell and does not recall what happened. When he was brought to the hospital, he was noted to have some rhabdomyolysis, acute kidney injury. He denied any chest pain, nausea, vomiting, abdominal pain or any issues with his bowels. The patient states he had a colonoscopy many years ago, does not recall where or when, we do not have any record of that. He did have an EGD in 2014 for some dysphagia ____ was found and he had a narrow caliber esophagus at that time. The patient states his bowels move daily, soft and formed with no evidence of any bright red blood or any melena. He states his weight has been stable and he has been having no issues with his GI tract. PAST MEDICAL HISTORY: Cardiomyopathy, heart disease, history of an ME back in 2012, glaucoma, hypertension, hyperlipidemia, poor vision, glaucoma. PAST SURGICAL HISTORY: CABG x 4, appendectomy, surgery on his eyes for glaucoma. FAMILY HISTORY: Noncontributory. SOCIAL HISTORY: He denies any alcohol, tobacco [place] [address] CONSULTATION Name: JAMEEL SHAH Room: [address]#: [id number] Admission: 11/21/21 Attend Phys: Jaimie Israel MD Discharge: Date of : 38 Report #: [id number] REVIEW OF SYSTEMS: Twelve-point review of systems is essentially negative except what is mentioned in the HPI. ALLERGIES: No known drug allergies. MEDICATIONS FROM HOME: Plavix, aspirin, stool softener, Lasix, Lipitor, K-Dur, Singulair, Mucinex and allergy medicine. PHYSICAL EXAMINATION: VITAL SIGNS: Temperature 37.2, pulse 71, respirations 17, blood pressure 120/72. HEART: Regular rate and rhythm. LUNGS: Diminished, but clear. ABDOMEN: Soft, positive bowel sounds in all 4 quadrants with no masses or tenderness noted. LABORATORY DATA: Hemoglobin is 9.1, it appears back in 2019 he was around 13. White count is 7.3, platelets 204. His BUN is 22, creatinine is 1. His GFR is 71. Iron is 27, TIBC 155. Percentage sat is 17, ferritin is 279. B12 is 653. Folate 29.8, total bili 0.7, alk phos 55, ALT 45, AST is 95. IMAGING: CT scan of the abdomen and pelvis showed descending thoracic aortic aneurysm with mural thrombus 5.6 mm and a large amount of stool in the rectum. IMPRESSION: 1. Anemia. 2. Anticoagulant therapy, Plavix. Coronary artery disease. 3. Non-ST elevation myocardial infarction, medical treatment. 4. Some dementia, underlying. 5. Rhabdomyolysis. 6. Acute kidney injury. PLAN: 1. EGD, colonoscopy tomorrow. 2. Monitor for any overt bleeding. 3. Obtain clearance from Cardiology. 4. Further recommendations to be made once the procedure has been performed. Thank you for allowing us to participate in this patient's care. Please do not hesitate to call with any questions in regards to this consult. By: 1342 192Wily Dunn MD /nt
[2021-11-21 11:30] VITALS: BP 97/61
[2021-11-21 12:45] LABS: ABSOLUTE BASOPHILS 0.1 thou/uL (0.0-0.2); ABSOLUTE LYMPHOCYTES 1.3 thou/uL (0.8-5.3); ABSOLUTE MONOCYTES 0.9 thou/uL (0.0-1.2); ABSOLUTE NEUTROPHILS 10.1 thou/uL (1.6-8.1); BASOPHILS 1.1 %; EOSINOPHILS 0.1 %; HEMATOCRIT 27.8 % (42.0-52.0); HEMOGLOBIN 9.5 gm/dL (14.0-18.0); LYMPHOCYTES 10.3 %; MCH 31.2 pg (26.0-34.0); MCHC 34.1 g/dL (28.0-37.0); MCV 91.4 fL (80.0-100.0); MONOCYTES 7.1 %; MPV 6.9 fl. (7.2-11.1); NUCLEATED RBCS 0 /100WBC; PLATELET COUNT* 193 thou/uL (150-400); POLYS 81.4 %; RBC 3.04 mil/uL (4.50-6.00); RDW-CV 13.9 % (10.5-14.5); WBC 12.5 thou/uL (4.0-11.0)
[2021-11-21 12:58] LABS: CALCIUM 8.5 mg/dL (8.5-10.1); CREATININE 1.5 mg/dL (0.6-1.3); POTASSIUM 4.2 mmol/L (3.5-5.1)
[2021-11-21 13:10] LABS: URINE BILIRUBIN NEGATIVE (Negative); URINE BLOOD 2+ (Negative); URINE CLARITY CLEAR; URINE COLOR YELLOW; URINE GLUCOSE-RANDOM NEGATIVE (Negative); URINE KETONES NEGATIVE (Negative); URINE LEUKOCYTES-REFLEX NEGATIVE (Negative); URINE NITRITE-REFLEX NEGATIVE (Negative); URINE PROTEIN NEGATIVE (Negative); URINE SPECIFIC GRAVITY >= 1.030 (1.005-1.030); URINE UROBILINOGEN 0.2 E.U./dl (0.2-1.0)
[2021-11-21 13:12] LABS: ALBUMIN 3.4 g/dL (3.4-5.0); TOTAL BILIRUBIN 0.7 mg/dL (<0.1-1.0); TOTAL PROTEIN 6.4 g/dL (6.4-8.2)
[2021-11-21 13:16] LABS: BACTERIA-REFLEX 1-9 Few /HPF (None Seen); CRYSTALS None Seen /LPF (None Seen); HYALINE CASTS 4-10 Moderate /LPF (None Seen); MUCUS 0-3 Light strn/LPF (None Seen); SQUAMOUS 0-3 Few /LPF (0-3)
[2021-11-21 13:17] LABS: URINE RBC 3-10 Few /HPF (0-2); URINE WBC-REFLEX None Seen /HPF (0-5)
--- NOTE | 2021-11-21 13:28 | EKG ---
[place] [address] ELECTROCARDIOGRAM REPORT Name: JAMEEL SHAH Room: [facility].#: [id number] Admission: Attend Phys: Discharge: Date of : 36 Date of Service: 11/21/21 1214 Report #: [id number] THIS REPORT FOR: //name// [facility] ED Test Date: 2021-11-21 Test Time: 12:14:59 Pat Name: JAMEEL SHAH Department: Room: Gender: Renal Technician: : 1940 Requested By: Chelsy Valera Order Number: [id number] MD: Raf Mike Measurements Intervals [place] Rate: 76 P: 32 SC: 164 QRS: -32 QRSD: 112 T: -84 QT: 417 QTc: 469 Interpretive Statements Sinus rhythm Incomplete RBBB and LAFB Probable anterior infarct, age indeterminate Compared to ECG 10/30/2018 14:06:21 Ectopic atrial rhythm no longer present Myocardial infarct finding still present Electronically Signed On 11-21-2021 13:28:07 LIBRARY MEDIA ASSISTANT by Raf Mike [email or web address] <ELECTRONICALLY SIGNED> By: Raf Mike MD, FAC 11/21/21 1328 1214 1214 Raf Mike MD, [facility] /EPI
--- NOTE | 2021-11-21 13:58 | NUR ---
ASSUMED PT CARE AT THIS TIME
[2021-11-21 14:00] VITALS: BP 105/50
[2021-11-21 18:00] VITALS: BP 102/53
[2021-11-21 21:59] VITALS: BP 100/58
[2021-11-22 04:00] VITALS: BP 104/53
[2021-11-22 05:38] LABS: HEMATOCRIT 24.6 % (42.0-52.0); HEMOGLOBIN 8.5 gm/dL (14.0-18.0); MCH 31.9 pg (26.0-34.0); MCHC 34.6 g/dL (28.0-37.0); MCV 92.4 fL (80.0-100.0); MPV 7.2 fl. (7.2-11.1); RBC 2.66 mil/uL (4.50-6.00); RDW-CV 13.9 % (10.5-14.5); WBC 8.7 thou/uL (4.0-11.0)
[2021-11-22 05:55] LABS: ALBUMIN 2.6 g/dL (3.4-5.0); ALKALINE PHOSPHATASE 56 U/L (46-116); ANION GAP 10 mmol/L (7-16); BUN 28 mg/dL (7-18); CALCIUM 7.6 mg/dL (8.5-10.1); CHLORIDE 103 mmol/L (98-107); CHOLESTEROL 110 mg/dL (<200); CO2 23 mmol/L (21-32); CREATININE 1.3 mg/dL (0.6-1.3); GLUCOSE 81 mg/dL (70-99); HDL CHOLESTEROL 46 mg/dL (>40); LDL CHOLESTEROL 53 mg/dL (<100); SGOT 112 U/L (15-37); SGPT 37 U/L (30-65); SODIUM 136 mmol/L (136-145); TC:HDL 2.4 Ratio (Not establshd); TOTAL BILIRUBIN 0.6 mg/dL (<0.1-1.0); TOTAL PROTEIN 5.2 g/dL (6.4-8.2); TRIGLYCERIDE 56 mg/dL (<150); VLDL 11 mg/dL (<40)
[2021-11-22 06:04] LABS: SERUM ASSESSMENT Clear
--- NOTE | 2021-11-22 07:14 | NUR ---
PT ARRIVED TO UNIT FROM ED AT 2200. REVIEW CONSULTANT IN PLACE, TRACING SR. DENIES PAIN. NURSING ASSESSMENT COMPLETED. HIGH FALL PRECAUTIONS IN PLACE. CALL LIGHT WITHIN REACH.
[2021-11-22 08:00] VITALS: BP 136/72
--- NOTE | 2021-11-22 09:13 | CON ---
[address] [address] CONSULTATION Name: ALYSSA,CHARLES Olive Room: [address] IN .Julissa.#: [id number] Admission: 11/21/21 Attend Phys: Jaimie Israel MD Discharge: Date of : 38 Report #: [id number] THIS REPORT FOR: cc: [facility] - Clinic physician unknown [facility] - Clinic physician unknown Raf Mike MD [facility] ~ DATE OF CONSULTATION: 11/21/2021 CARDIOLOGY CONSULTATION HISTORY OF PRESENT ILLNESS: The patient is an 81-year-old single white male who was admitted after an episode of confusion. The patient has a history of cardiomyopathy. He last saw my nurse practitioner a year ago. Previous stress test showed no ischemia. Echocardiogram in 2018 showed an ejection fraction of 35%. The patient is not very active at this time. He has a history of dementia and has a home health aide that visits him and helps with his medications and daily activities. He is not very active at this time. The patient apparently was found outside yesterday morning by neighbors. He apparently had been out all night. He apparently fell recently. Paramedics were called. He refused to come to the ambulance yesterday. Today, the son recommended he go to the hospital to be evaluated. The patient denies any chest pain, shortness of breath, palpitation, lightheadedness, fever, or cough. PAST MEDICAL HISTORY: Otherwise, significant for appendectomy, hernia repair, and glaucoma. MEDICATIONS: On admission included potassium, Lasix, lisinopril, Plavix, and Lipitor. ALLERGIES: He has no known drug allergies. SURGICAL HISTORY: He has had previous appendectomy, cataract extraction, and hernia repair. FAMILY HISTORY: His mother had heart disease. SOCIAL HISTORY: He is , lives by himself in [place], [place]. Quit smoking years ago. No alcohol abuse. REVIEW OF SYSTEMS: The patient has no history of stroke, asthma, liver disease, kidney disease, cancer, or psychiatric illness. He does have dementia. PHYSICAL EXAMINATION: GENERAL: Revealed an elderly, frail-appearing white male, lying in bed. [place] [address] CONSULTATION Name: JAMEEL SHAH Room: [address]#: [id number] Admission: 11/21/21 Attend Phys: Jaimie Israel MD Discharge: Date of : 38 Report #: [id number] VITAL SIGNS: He had a blood pressure of 110/60 and pulse 70, he is afebrile. HEENT: He was anicteric. Conjunctivae pink. Mucous membranes moist. NECK: Veins do not appear distended. CHEST: Clear to auscultation. HEART: Regular rate and rhythm. ABDOMEN: Soft. EXTREMITIES: Had no pitting edema. Dorsalis pedis pulse cannot be palpated. SKIN: Cool and dry. NEUROLOGIC: He was not oriented to place or time. IMAGING: ECG shows a sinus rhythm, septal Q-waves, nonspecific ST and T-wave changes. His workup in the Emergency Room, the patient had a portable chest x-ray that showed normal heart size, clear lung villalobos. CT scan of the head showed no acute abnormality, atrophy was noted. LABORATORY DATA: His lab work, creatinine 1.5. His liver function studies were normal. High sensitivity troponin 1182. His hemoglobin 9.5. His COVID antigen stat test was negative. Urinalysis negative for protein, negative for leukocytes. IMPRESSION AND RECOMMENDATIONS: 1. Non-ST elevation myocardial infarction. Recommend medical therapy. I would not recommend cardiac catheterization or stress testing. 2. Cardiomyopathy. The patient has been on SUSAN inhibitor. I would consider adding Aldactone and beta jane. However, review of the charts note that the patient had a beta jane in the past, was discontinued due to bradycardia. 3. Hyperlipidemia. The patient is on a statin drug. 4. History of thoracic aortic aneurysm. The patient has been evaluated by vascular surgeon in the past. 5. Dementia. 6. Chronic kidney disease. 7. Anemia. No recent bleeding. <ELECTRONICALLY SIGNED> By: Raf Mike MD, FACC 11/22/21 0913 1526 1931Dnkechi Mike MD, FAC /nt
--- NOTE | 2021-11-22 10:49 | EKG ---
[place] [address] ELECTROCARDIOGRAM REPORT Name: JAMEEL SHAH Room: [address] IN [facility].#: [id number] Admission: 11/21/21 Attend Phys: Jaimie Israel, Discharge: Date of : 36 Date of Service: 11/22/21 0957 Report #: [id number] THIS REPORT FOR: //name// [facility] Test Date: 2021-11-22 Test Time: 09:57:33 Pat Name: JAMEEL MUHAMMADKPATRICK Department: Room: [facility] Gender: M Manager Of Community Relations: Tabatha Mays : 1940 Requested By: Raf Mike Order Number: [id number] Flower MD: Catracho Casanova Measurements Intervals [place] Rate: 84 P: -21 MN: 158 QRS: -60 QRSD: 111 T: 108 QT: 387 QTc: 458 Interpretive Statements Sinus rhythm Left anterior fascicular block Abnormal R-wave progression, early transition Anteroseptal infarct, old, possible Repol abnrm suggests ischemia, diffuse leads Compared to ECG 11/21/2021 12:14:59 Early repolarization now present Possible ischemia now present Incomplete right bundle-branch block no longer present Right bundle-branch block no longer present Myocardial infarct finding still present Electronically Signed On 11-22-2021 10:49:23 PSYCHOTHERAPIST by Catracho Casanova [email or web address] <ELECTRONICALLY SIGNED> By: Catracho Casanova MD, [facility] 11/22/21 1049 0957 0957 Catracho Casanova MD, [facility] /EPI
[2021-11-22 12:00] VITALS: BP 108/54
--- NOTE | 2021-11-22 12:13 | 2DMMODE ---
[place] [address] 2 D/M-MODE ECHOCARDIOGRAM Name: JAMEEL SHAH Room: [address] IN [facility]#: [id number] Admission: 11/21/21 Attend Phys: Jaimie Israel, Discharge: Date of : 38 Date of Service: 11/22/21 1213 Report #: [id number] THIS REPORT FOR: cc: [facility] - Clinic physician unknown [facility] - Clinic physician unknown Catracho Casanova MD [facility] ~ APPROVED REPORT Study performed: 11/22/2021 10:11:18 EXAM: Comprehensive 2D, Doppler, and color-flow Echocardiogram Patient Location: In-Patient Room #: [facility] Status: routine BSA: 1.68 HR: 80 bpm BP: 104/53 mmHg Rhythm: NSR Other Information Study Quality: Good Indications Acute NV 2D Dimensions IVSd: 8.14 (7-11mm) LVOT Diam: 19.63 (18-24mm) LVDd: 54.08 mm PWd: 8.35 (7-11mm) Ascending Ao: 34.90 (22-36mm) LVDs: 47.58 (25-40mm) Aortic Root: 33.30 mm Volumes Left Atrial Volume (Systole) LA ESV Index: 35.50 mL/m2 Aortic Valve AoV Peak Jerman.: 1.26 m/s AO Peak Gr.: 6.31 mmHg LVOT Max P.79 mmHg AO Mean Gr.: 3.79 mmHg LVOT Mean P.03 mmHg LVOT Max V: 1.09 m/s AO V2 VTI: 23.65 cm LVOT Mean V: 0.64 m/s REJI (VTI): 2.73 cm2 LVOT V1 VTI: 21.31 [place] [address] 2 D/M-MODE ECHOCARDIOGRAM Name: JAMEEL SHAH Room: [address]#: [id number] Admission: 11/21/21 Attend Phys: Jaimie Israel, Discharge: Date of : 38 Date of Service: 11/22/21 1213 Report #: [id number] Mitral Valve E/A Ratio: 1.08 MV Decel. Time: 167.83 ms MV E Max Jerman.: 0.86 m/s MV PHT: 48.67 ms MVA (PHT): 4.52 cm2 TDI E/Lateral E': 7.82 E/Medial E': 17.20 Medial E' Jerman.: 0.05 m/s Lateral E' Jerman.: 0.11 m/s Pulmonary Valve PV Peak Jerman.: 0.90 m/s PV Peak Gr.: 3.25 mmHg Tricuspid Valve RAP Estimate: 10.00 mmHg TR Peak Gr.: 43.02 mmHg RVSP: 53.00 mmHg PA Pressure: 53.00 mmHg Left Ventricle Left ventricle is mildly dilated. There is global hypokinesis with with severe hypokinesis to akinesis of the mid anterior anteroseptal wall extending to the apex. There is normal left ventricular wall thickness. Left ventricular systolic function is moderately decreased. LVEF is 35-40%. Transmitral Doppler flow pattern suggests restrictive physiology. Right Ventricle Right ventricle is dilated. The right ventricular systolic function is normal. Atria Left atrium is mildly dilated. Right atrium is dilated. Aortic Valve Mild aortic valve sclerosis. No aortic regurgitation is present. There is no aortic valvular stenosis. Mitral Valve The mitral valve is normal in structure. Mild mitral regurgitation. No evidence of mitral valve stenosis. Tricuspid Valve The tricuspid valve is normal in structure. Mild tricuspid regurgitation. Moderate pulmonary hypertension. The RVSP is 55-60 [place] [address] 2 D/M-MODE ECHOCARDIOGRAM Name: JAMEEL SHAH Room: [address]#: [id number] Admission: 11/21/21 Attend Phys: Jaimie Israel, Discharge: Date of : 36 Date of Service: 11/22/21 1213 Report #: [id number]. Pulmonic Valve The pulmonary valve is normal in structure. There is no pulmonic valvular regurgitation. Great Vessels The aortic root is normal in size. IVC is dilated. Pericardium There is no pericardial effusion. <Conclusion> Left ventricle is mildly dilated. There is normal left ventricular wall thickness. Left ventricular systolic function is moderately decreased. LVEF is 35-40%. Transmitral Doppler flow pattern suggests restrictive physiology. There is global hypokinesis with with severe hypokinesis to akinesis of the mid anterior anteroseptal wall extending to the apex. Right ventricle is dilated. Left atrium is mildly dilated. Right atrium is dilated. Mild aortic valve sclerosis. Mild mitral regurgitation. Mild tricuspid regurgitation. Moderate pulmonary hypertension. The RVSP is 55-60 mmHg. IVC is dilated. <ELECTRONICALLY SIGNED> By: Catracho Casanova MD, FACC 11/22/21 121 12 12 Catracho Casanova MD, FACC /INF
--- NOTE | 2021-11-22 15:35 | NUR ---
CM ASSESSMENT: CM SPOKE TO THE PT'S COUSIN PATSY TO COMPLETE CM ASSESSMENT. PATSY INFORMS THAT THE PT RESIDES AT HOME ALONE IN AN APARTMENT. PT IS BLIND. PT USES 0 DME FOR MOBILITY, BUT OWNS A BLIND CANE. SHE INFORMS THAT THE PT DOESN'T KNOW HOW TO USE THE BLIND CANE. PT HAS 0 HX OF HH OR SNF. PT USES [facility] [employer] [facility]. PT IS CURRENTLY ON-SERVICE WITH [facility]. PLAN FOR PT TO POSSIBLY D/C TO SNF, BUT HE WILL LIKELY NEED LTC PLACEMENT POST SNF. PATSY INFORMS THAT THE PT'S BROTHER HANH IS HIS DPOA AND SHOULD BE CONTACTED FOR MEDICAL DECISION MAKING. CM TO F/U WITH HANH. CM WILL REMAIN AVAILABLE TO ASSIST AND FOLLOW NEEDED. HANHBunny SHAH (PT'S BROTHER) PHONE: [phone]
[2021-11-22 16:00] VITALS: BP 111/66
[2021-11-22 20:00] VITALS: BP 118/72
[2021-11-23] VITALS: BP 124/69
[2021-11-23 04:31] VITALS: BP 119/61
[2021-11-23 04:55] LABS: HEMATOCRIT 26.2 % (42.0-52.0); HEMOGLOBIN 9.1 gm/dL (14.0-18.0); MCH 31.8 pg (26.0-34.0); MCHC 34.6 g/dL (28.0-37.0); MCV 91.9 fL (80.0-100.0); MPV 6.9 fl. (7.2-11.1); RBC 2.85 mil/uL (4.50-6.00); RDW-CV 13.7 % (10.5-14.5); WBC 7.3 thou/uL (4.0-11.0)
[2021-11-23 05:38] LABS: ALBUMIN 2.6 g/dL (3.4-5.0); CALCIUM 7.4 mg/dL (8.5-10.1); MAGNESIUM 2.1 mg/dL (1.8-2.4); POTASSIUM 3.7 mmol/L (3.5-5.1); TOTAL BILIRUBIN 0.7 mg/dL (<0.1-1.0); TOTAL PROTEIN 5.4 g/dL (6.4-8.2)
[2021-11-23 06:24] LABS: % SATURATION 17 % (20-39); IRON 27 ug/dL (50-175)
[2021-11-23 09:00] VITALS: BP 109/53
[2021-11-23 12:00] VITALS: BP 120/72
--- NOTE | 2021-11-23 16:15 | NUR ---
PLAN OF CARE: PLAN FOR THE PT TO POSSIBLY D/C TO SNF WHEN MEDICALLY STABLE. PT WILL LIKELY NEED SNF TO LTC. CM DISCUSSED THIS WITH THE PT AND HE WAS NOT IN AGREEMENT AND REQUEST TO RETURN HOME AT D/C. CM TO F/U WITH PT'S BROTHER/DPOA TO DISCUSS THIS FURTHER. CM WILL REMAIN AVAILABLE TO ASSIST AND FOLLOW NEEDED.
[2021-11-23 17:47] VITALS: BP 116/74
[2021-11-23 20:00] VITALS: BP 110/60
[2021-11-24] VITALS: BP 115/66
[2021-11-24 04:00] VITALS: BP 100/57
[2021-11-24 04:18] LABS: HEMATOCRIT 27.6 % (42.0-52.0); HEMOGLOBIN 9.5 gm/dL (14.0-18.0); MCH 31.6 pg (26.0-34.0); MCHC 34.5 g/dL (28.0-37.0); MCV 91.7 fL (80.0-100.0); MPV 7.3 fl. (7.2-11.1); RBC 3.01 mil/uL (4.50-6.00); RDW-CV 13.6 % (10.5-14.5)
[2021-11-24 04:46] LABS: ALBUMIN 2.6 g/dL (3.4-5.0); CALCIUM 7.5 mg/dL (8.5-10.1); CREATININE 1.1 mg/dL (0.6-1.3); MAGNESIUM 1.9 mg/dL (1.8-2.4); POTASSIUM 4.4 mmol/L (3.5-5.1); TOTAL BILIRUBIN 0.8 mg/dL (<0.1-1.0); TOTAL PROTEIN 5.5 g/dL (6.4-8.2)
[2021-11-24 07:58] VITALS: BP 113/63
[2021-11-24 12:00] VITALS: BP 100/67
[2021-11-24 16:00] VITALS: BP 133/59
--- NOTE | 2021-11-24 16:14 | NUR ---
PT UP WITH GAIT BELT AND WALKER X1 ASST. PT IS A&O X4. PT IS ON RM AIR AT DAY AND 2L 02 AT NIGHT. PT IS TO BE ON CLEAR LIQUIDS TILL MIDNIGHT THEN NPO, PT WILL HAVE EGD AND COLON Sunday11-25-21. PT HAS IV IN LT WRIST. PT IS RESTING IN CHAIR WITH CALL LIGHT IN REACH.
--- NOTE | 2021-11-24 16:27 | NUR ---
PLAN OF CARE: PLAN FOR THE PT TO POSSIBLY D/C HOME WITH HH VS SNF WHEN MEDICALLY STABLE. CM WILL REMAIN AVAILABLE TO ASSIST AND FOLLOW NEEDED.
[2021-11-24 19:45] VITALS: BP 127/70
[2021-11-25 00:18] VITALS: BP 139/76
[2021-11-25 04:00] VITALS: BP 113/56
[2021-11-25 04:30] LABS: MCH 31.5 pg (26.0-34.0); MCHC 34.3 g/dL (28.0-37.0); MCV 91.6 fL (80.0-100.0); RBC 3.16 mil/uL (4.50-6.00); RDW-CV 13.7 % (10.5-14.5); WBC 7.8 thou/uL (4.0-11.0)
[2021-11-25 04:54] LABS: ALBUMIN 2.3 g/dL (3.4-5.0); CALCIUM 7.2 mg/dL (8.5-10.1); MAGNESIUM 2.1 mg/dL (1.8-2.4); POTASSIUM 3.4 mmol/L (3.5-5.1); TOTAL BILIRUBIN 0.6 mg/dL (<0.1-1.0); TOTAL PROTEIN 5.3 g/dL (6.4-8.2)
--- NOTE | 2021-11-25 05:25 | NUR ---
PT A&O X 4. VSS ON RA, 2L PRN. MEDS GIVEN ORDERED. PT BLIND, UP TO BSC WITH 1 ASSIST. NO C/O PAIN OR N/V. BOWEL PREP IN PROGRESS. PT HAD LIQUIDY BROWN STOOL. NPO SINCE MIDNIGHT FOR EGD, COLONOSCOPY. CALL LIGHT WITHIN REACH. WILL CONTINUE TO MONITOR.
[2021-11-25 08:00] VITALS: BP 108/57
--- NOTE | 2021-11-25 15:55 | NUR ---
PLAN OF CARE: PLAN FOR THE PT TO D/C HOME WITH HH WHEN MEDICALLY STABLE POSSIBLY TOMORROW. CM WILL REMAIN AVAILABLE TO ASSIST AND FOLLOW NEEDED.
[2021-11-25 18:28] LABS: BE -3.5 mmol/L (-2 to +3); PCO2 27.1 mmHg (35.0-45.0); pH 7.464 (7.340-7.450)
[2021-11-25 18:30] LABS: PO2 52.2 mmHg (75.0-100.0)
[2021-11-25 20:15] VITALS: BP 133/80
[2021-11-26] VITALS: BP 107/57
[2021-11-26 04:00] VITALS: BP 94/56
--- NOTE | 2021-11-26 05:13 | NUR ---
PT A&O, FORGETFUL AT TIMES. ON 3L BY NC. MEDS GIVEN ORDERED. PT HAD TO URINATE 10+ TIMES THIS SHIFT, 100ML ONLY EVERY TIME. BED ALARM ON FOR SAFETY. WILL CONTINUE TO MONITOR.
[2021-11-26 06:05] LABS: HEMATOCRIT 26.7 % (42.0-52.0); HEMOGLOBIN 9.1 gm/dL (14.0-18.0); MCH 31.3 pg (26.0-34.0); MCHC 34.2 g/dL (28.0-37.0); MCV 91.4 fL (80.0-100.0); MPV 7.2 fl. (7.2-11.1); NUCLEATED RBCS 0 /100WBC; PLATELET COUNT* 269 thou/uL (150-400); RBC 2.92 mil/uL (4.50-6.00); RDW-CV 13.9 % (10.5-14.5); WBC 12.7 thou/uL (4.0-11.0)
[2021-11-26 06:11] LABS: PREALBUMIN 8.6 mg/dL (18.0-35.7)
[2021-11-26 06:50] LABS: ALBUMIN 2.1 g/dL (3.4-5.0); CALCIUM 7.4 mg/dL (8.5-10.1); POTASSIUM 3.5 mmol/L (3.5-5.1); TOTAL BILIRUBIN 0.6 mg/dL (<0.1-1.0); TOTAL PROTEIN 4.9 g/dL (6.4-8.2)
[2021-11-26 07:19] LABS: ABSOLUTE LYMPHOCYTES 0.9 thou/uL (0.8-5.3); ABSOLUTE MONOCYTES 0.9 thou/uL (0.0-1.2); ABSOLUTE NEUTROPHILS 10.9 thou/uL (1.6-8.1)
[2021-11-26 07:20] LABS: PLATELET ESTIMATE ADEQUATE
[2021-11-26 07:54] LABS: ESR (SEDRATE) 22 mm/hr (0-20)
[2021-11-26 08:36] VITALS: BP 101/51
[2021-11-26 11:00] VITALS: BP 88/49
[2021-11-26 16:14] LABS: ABSOLUTE EOSINOPHILS 0.1 thou/uL (0.0-0.7); ABSOLUTE LYMPHOCYTES 0.9 thou/uL (0.8-5.3); ABSOLUTE MONOCYTES 0.8 thou/uL (0.0-1.2); ABSOLUTE NEUTROPHILS 6.8 thou/uL (1.6-8.1); BASOPHILS 0.2 %; EOSINOPHILS 0.8 %; HEMATOCRIT 28.3 % (42.0-52.0); HEMOGLOBIN 9.7 gm/dL (14.0-18.0); MCH 31.5 pg (26.0-34.0); MCHC 34.2 g/dL (28.0-37.0); MONOCYTES 8.7 %; MPV 7.3 fl. (7.2-11.1); NUCLEATED RBCS 0 /100WBC; PLATELET COUNT* 280 thou/uL (150-400); POLYS 79.3 %; RBC 3.08 mil/uL (4.50-6.00); RDW-CV 13.9 % (10.5-14.5); WBC 8.6 thou/uL (4.0-11.0)
[2021-11-26 16:36] LABS: CALCIUM 7.6 mg/dL (8.5-10.1); CREATININE 1.1 mg/dL (0.6-1.3); MAGNESIUM 2.1 mg/dL (1.8-2.4); POTASSIUM 3.5 mmol/L (3.5-5.1)
[2021-11-26 17:13] LABS: APTT 40.1 Seconds (25.0-31.3); INR 1.4; PROTIME 13.8 Seconds (9.20-11.50)
[2021-11-26 20:00] VITALS: BP 92/49
[2021-11-27 01:57] VITALS: BP 107/65
[2021-11-27 05:29] VITALS: BP 101/60
[2021-11-27 08:00] VITALS: BP 107/63
[2021-11-27 12:00] VITALS: BP 117/71
[2021-11-27 16:00] VITALS: BP 117/69
[2021-11-27 18:20] LABS: CALCIUM 7.9 mg/dL (8.5-10.1); CREATININE 1.2 mg/dL (0.6-1.3); MAGNESIUM 1.7 mg/dL (1.8-2.4); POTASSIUM 3.7 mmol/L (3.5-5.1)
[2021-11-27 20:00] VITALS: BP 121/72
[2021-11-28 02:56] VITALS: BP 121/62
[2021-11-28 04:45] LABS: ABSOLUTE MONOCYTES 0.7 thou/uL (0.0-1.2); ABSOLUTE NEUTROPHILS 5.8 thou/uL (1.6-8.1); BASOPHILS 0.6 %; EOSINOPHILS 0.6 %; HEMATOCRIT 27.4 % (42.0-52.0); HEMOGLOBIN 9.5 gm/dL (14.0-18.0); LYMPHOCYTES 12.9 %; MCH 31.7 pg (26.0-34.0); MCHC 34.5 g/dL (28.0-37.0); MCV 91.8 fL (80.0-100.0); MONOCYTES 8.9 %; MPV 6.9 fl. (7.2-11.1); NUCLEATED RBCS 0 /100WBC; PLATELET COUNT* 315 thou/uL (150-400); RBC 2.99 mil/uL (4.50-6.00); WBC 7.5 thou/uL (4.0-11.0)
[2021-11-28 05:09] LABS: ALBUMIN 2.1 g/dL (3.4-5.0); CALCIUM 7.7 mg/dL (8.5-10.1); POTASSIUM 4.2 mmol/L (3.5-5.1); TOTAL BILIRUBIN 0.6 mg/dL (<0.1-1.0); TOTAL PROTEIN 5.3 g/dL (6.4-8.2)
[2021-11-28 05:27] VITALS: BP 124/67
--- NOTE | 2021-11-28 07:00 | NUR ---
PATIENT COMBATIVE AND IMPULSIVE AT BEGINNING OF SHIFT. ORDER RECEIVED FOR ATIVAN 0.5MG IV Q26H PRN; GIVEN. PT FINALLY RELAXED AND SLEPT WELL. BIPAP IN PLACE BY RT. PT REPOSITIONED Q2H PER PROTOCAL. PT ON O2 @ 2L PRIOR TO BIPAP. PT VOIDS STANDING WITH ASSIST PER URINAL. PT DENIES PAIN/NAUSEA. FREQUENTLY USED ITEMS AND CALL LIGHT WITHIN REACH. WILL CONTINUE TO MONITOR.
[2021-11-28 08:00] VITALS: BP 112/57
[2021-11-28 12:04] VITALS: BP 110/60
--- NOTE | 2021-11-28 14:28 | NUR ---
PLAN OF CARE: PLAN FOR PT TO D/C TO SNF PENDING SNF ACCEPTANCE AND INSURANCE AUTH. CM SPOKE TO THE PT TO DISCUSS THIS. PT LETHARGIC, BUT ACKNOWLEDGES AGREEMENT TO ALLOW THIS CM TO FAX SNF REFERRAL TO [facility] (IN [place]), AND [facility] AND [facility]. CM FAXED SNF REFERRAL TO BOTH, BUT UPDATED PT/OT NOTES ARE NEEDED TO ASSIST WITH SNF PLACEMENT. CM WILL REMAIN AVAILABLE TO ASSIST AND FOLLOW NEEDED.
[2021-11-28 16:09] VITALS: BP 118/66
[2021-11-28 20:00] VITALS: BP 112/62
--- NOTE | 2021-11-28 23:54 | NUR ---
I ASSUMED CARE OF THE PATIENT AT 0700. HE IS ALERT AND ORIENTED X3 AND IS UP WITH ONE AND A WALKER. BED IS IN THE LOW LOCKED POSITION AND CALL LIGHT IS IN REACH. PATIENT NEEDS ARE MET DURING HOURLY ROUNDING AND AND PAIN IS DENIED. LOTS OF EDUCATION TOOK PLACE WITH BROTHER, CASE MANAGMENT AND NURSE. HE DOES NOT WANT TO LEAVE HIS APARTMENT TO GO TO A FACILITY, WITH THE FEAR OF HIS POOR VISION AND LACK OF KNOWING ANYONE. HE HAS HIS CURRENT SPACE MEMORIZED, AFTER BEING THERE 20 YEARS. URINE IS OBTAINED AND SENT TO LAB. HE REPOSITIONS HIMSELF. HE NEEDS SETUP AND DOES BETTER WHEN FED. COULD MAYBE BENEFIT FROM GROUND MEAT DUE TO POOR DENTATION. ATIVAN STAYED IN HIS SYSTEM FOR A LONG TIME, SO WE REPLACED IT WITH XANAX FOR HS IF NEEDED. WILL CONTINUE TO MONITOR.
[2021-11-29] VITALS (7 sets, daily range): BP systolic 105–118; BP diastolic 51–64
[2021-11-29 04:36] LABS: ABSOLUTE BASOPHILS 0.1 thou/uL (0.0-0.2); ABSOLUTE EOSINOPHILS 0.2 thou/uL (0.0-0.7); ABSOLUTE LYMPHOCYTES 1.2 thou/uL (0.8-5.3); ABSOLUTE MONOCYTES 0.5 thou/uL (0.0-1.2); ABSOLUTE NEUTROPHILS 4.8 thou/uL (1.6-8.1); BASOPHILS 0.8 %; EOSINOPHILS 3.6 %; HEMATOCRIT 29.3 % (42.0-52.0); HEMOGLOBIN 9.9 gm/dL (14.0-18.0); LYMPHOCYTES 17.3 %; MCHC 33.7 g/dL (28.0-37.0); MCV 91.9 fL (80.0-100.0); MONOCYTES 7.5 %; MPV 6.8 fl. (7.2-11.1); NUCLEATED RBCS 0 /100WBC; PLATELET COUNT* 342 thou/uL (150-400); POLYS 70.8 %; RBC 3.19 mil/uL (4.50-6.00); RDW-CV 14.1 % (10.5-14.5); WBC 6.8 thou/uL (4.0-11.0)
--- NOTE | 2021-11-29 04:41 | NUR ---
PATIENT WORE BIPAP UNTIL 040
[2021-11-29 04:50] LABS: ALBUMIN 2.3 g/dL (3.4-5.0); TOTAL BILIRUBIN 0.6 mg/dL (<0.1-1.0); TOTAL PROTEIN 5.6 g/dL (6.4-8.2)
--- NOTE | 2021-11-29 06:40 | NUR ---
PATIENT ALERT/ORIENTED X2; CONFUSED. PT ON O2 @ 3LITERS PER NC AND ON BIPAP AT NIGHT. PT GIVEN ATIVAN PRIOR TO BIPAP AND TOLERATED IT WELL UNTIL APPOX 4AM WHEN HE SAID IT WAS HURTING HIS NOSE. PT PLACED ON NC AND RT NOTIFIED. FOAM PAD PROVIDED FOR BIPAP USE TONIGHT. PT DENIES PAIN/NAUSEA. PT WAS SITTING IN CHAIR AT BEGINNING OF SHIFT AND WAS VERY COOPERATIVE. PT ABLE TO RING CONTRERAS WHEN HE NEEDS URINAL. PT ASSISTED WITH TURNS Q2H PER PROTOCAL. FREQUENTLY USED ITEMS AND CALL LIGHT WITHIN REACH. SIDERAILS UPX3 AND BED ALARM ON. WILL CONTINUE TO MONITOR.
--- NOTE | 2021-11-29 11:07 | PATH ---
[address] [address] PATHOLOGY RPT PROCEDURE Name: JAMEEL SHAH Room: [address] IN ..#: [id number] Admission: 11/21/21 Date of : 36 Discharge: Report #: [id number] Path Case #: [id number] [facility] Accession Number: [id number] . 01 Material submitted: . cecum - CECAL POLYP BIOPSY . 01 Clinical history: . EGD AND COLONOSCOPY . 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 (LUÍS:donnell; 11/28/2021) [facility] [place]/28/2021 1241 Local . 02 Electronically signed: . Brooks Aguilar MD, Pathologist NPI- [id number] . 01 Gross description: . The specimen is received in formalin, labeled "Loiza, Jameel, cecal polyp". Received is a single segment of pale dinh tissue measuring 0.4 cm in maximum dimensions. The specimen is entirely submitted in cassette A1. ([facility]; 11/25/2021) NRI/NRI 11/25/2021 1832 Local . 02 Pathologist provided ICD-10: D12.0 . 02 CPT . 637597 Specimen Comment: A courtesy copy of this report has been sent to [phone], [phone] Specimen Comment: [phone] Specimen Comment: Report sent to / DR CARTER Specimen Comment: A duplicate report has been generated due to demographic updates. Performed at: [address], [place], [place] [id number] MD Guillaume Velasquez MD Phone: [phone] Performed at: [facility] [address], [place], [place] [id number] MD Brooks Aguilar MD Phone: [phone]
[2021-11-29] MEDS ORDERED: PROTONIX40 M2 PO (12:38)
[2021-11-29] MEDS ORDERED: DOXYCYCLINE 10100 MG PO (12:38)
--- NOTE | 2021-11-29 15:54 | NUR ---
PLAN OF CARE: PLAN FOR THE PT TO D/C HOME TODAY WITH HH. PT HAS NO PREFERENCE OF HH AND ACCEPTS HH WITH [facility] AND THEY ARE WILLING TO ACCEPT THE PT PENDING CONFIRMATION OF PT'S PCP. CM AWAITING CALLBACK FROM PT'S FAMILY TO OBTAIN THIS INFO. W/C VAN TRANSPORTATION ARRANGED WITH [facility] FOR [id number]. CM WILL REMAIN AVAILABLE TO ASSIST AND FOLLOW NEEDED. [facility] PHONE: [phone]
--- NOTE | 2021-11-29 18:45 | NUR ---
PT DC TO HOME BY WHEEL CHAIR VAN ABOUT 1730. IV OUT. PT MEDICALLY STABLE. DIDNT REQUIRE O2. PERSONAL BELONGINGS SENT WITH PT. PT COUSIN CALLED TO MEET AT PT APT.
[2021-11-30 15:08] LABS: MYCOPLASMA PNEUMONIA IgG <100 U/mL (0-99); MYCOPLASMA PNEUMONIA IgM <770 U/mL (0-769)
--- NOTE | 2021-11-30 19:29 | CON ---
[address] [address] CONSULTATION Name: ALYSSAJAMEEL Olive Room: [address]R.#: [id number] Admission: 11/21/21 Attend Phys: Jaimie Israel MD Discharge: 11/29/21 Date of : 36 Report #: [id number] THIS REPORT FOR: cc: [facility] - Clinic physician unknown [facility] - Clinic physician unknown Waldo Angel MD ~ DATE OF CONSULTATION: 11/26/2021 REQUESTING PHYSICIAN: James Chavez MD INDICATION FOR CONSULTATION: Acute respiratory failure/persistent oxygen needs. HISTORY OF PRESENT ILLNESS: An 81-year-old gentleman, past medical history includes a history of congestive heart failure with left ventricular ejection fraction is 35-40%. The patient's right heart pressures on a previous echocardiogram performed in 2018, reported to not be elevated. The patient's current pulmonary artery systolic pressure is 55-60. The patient is reported to have been admitted initially with acute renal insufficiency with a creatinine of 1.5. The patient also was in rhabdomyolysis with a CPK is up to 3800 recorded. The patient has been fluid resuscitated. The patient's initial chest x-ray from 11/21, primarily only showed some chronic changes. The patient's new chest x-ray performed yesterday is consistent with pulmonary edema. There is also atelectasis present on the right side in the right upper lobe, which was not present previously. Subsequent to this chest x-ray, the patient has been diuresed. Currently, he is only on 2-3 liters nasal cannula. He has a blood pressure towards the lower end of the normal range. He does not complain of much shortness of breath. He does not have significant cough or sputum production. He does not have swelling of lower extremities or calf pain at this time. The patient also denied upper respiratory complaints. The patient provided a limited history. REVIEW OF SYSTEMS: However, is negative as obtained from him for 12 points except as mentioned above. PAST MEDICAL HISTORY: Coronary artery disease, status post CABG; left ventricular ejection fraction 35-40%, previous pulmonary artery systolic is normal in 2018, pulmonary artery systolic, now 55-60. Baseline creatinine is normal. Appendectomy, hernia repair, hyperlipidemia, hypertension, glaucoma, aortic aneurysm with mural thrombus, poor vision. SOCIAL HISTORY: There is only a remote history of smoking, discontinued smoking in the 1960s. No known history of heavy alcohol use or illegal drug use. CURRENT MEDICATIONS: List in [employer] [place] [address] CONSULTATION Name: JAMEEL SHAH Room: [address]#: [id number] Admission: 11/21/21 Attend Phys: Jaimie Israel MD Discharge: 11/29/21 Date of : 36 Report #: [id number] HOME MEDICATIONS: List also in [employer] reviewed. FAMILY HISTORY: No pertinent family history. PHYSICAL EXAMINATION: GENERAL: He is alert, awake and oriented. VITAL SIGNS: In the records reviewed. NECK: Does not show raised JVP. CHEST: Breath sounds bilaterally equal. No added sounds. HEART: Regular. There is no murmur. ABDOMEN: Soft and nontender. EXTREMITIES: Lower extremities show no edema, no calf tenderness. LABORATORY DATA: The patient's lab work as well as [facility] and this is reviewed. ASSESSMENT AND PLAN: 1. Acute hypoxemic respiratory failure. Currently, the patient is oxygenating adequately on 2-3 liters nasal cannula. I understand he has not previously needed oxygen. He does not appear to be in any distress. There is pulmonary edema on the chest x-ray yesterday as well as atelectasis and there is a change in his pulmonary artery systolic pressure. We will investigate further before initiating therapies. 2. Acute on chronic congestive heart failure/acute pulmonary edema. Acute pulmonary edema as seen on the chest x-ray performed on 11/24 and 11/25, not present on the x-ray performed on 11/21. At this point, he is in no distress and he has been diuresed since the last chest x-ray. Therefore, we will repeat a chest x-ray as well as labs before considering diuresis. He may need medications to support blood pressure in case we decide to give him additional diuresis. 3. Pulmonary hypertension. This is new since 2018, not known to me if it was present at the earlier stage. We will do a D-dimer. If it is elevated, then we will assess regarding whether we should obtain a CTA chest with or without venous Dopplers. 4. 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 I understand he has been seen by Vascular Surgery in the past. This is beyond my expertise. I would defer to the primary service in case we consider anticoagulation, then we will need to take this into account as well. 5. Anemia. He is status post gastrointestinal scopes yesterday. He received diuresis, but there is still a drop in hemoglobin since yesterday. I ordered a repeat CBC as well. We will follow. 6. Atelectasis. We will add Mucomyst if significant atelectasis is persisting on the x-ray today and we will consider adding a BiPAP while asleep. [address] [place] [address] CONSULTATION Name: ALYSSA,CHARLES Olive Room: [address] IN M.R.#: [id number] Admission: 11/21/21 Attend Phys: Jaimie Israel MD Discharge: 11/29/21 Date of : 36 Report #: [id number] 7. Pulmonary infiltrates. For now, recommend continuing with antibiotics as currently prescribed; however, this at first glance does not appear to be the primary etiology of his respiratory failure, but he does appear to have mucus plugging in the right lung and therefore, antibiotics would help. Would switch doxycycline to p.o. if he is able to swallow in order to limit intake. 8. Rhabdomyolysis. This appears to be resolving. CPK is now normal. 9. Deep vein thrombosis prophylaxis. We will reassess in a.m. Thanks for this consultation. <ELECTRONICALLY SIGNED> By: Waldo Angel MD 11/30/21 1929 1429 1844Ajanis Angel MD /nt
== END 2021-11-29 18:46 | disposition home health service (06) | DRG 177 ==
LOC: M.ERS 11:19 → M.TBA-ER 15:03 → M.2W 15:03
PROVIDERS: Internal Medicine; Internal Medicine Cardiovascular Disease; Internal Medicine Critical Care Medicine; Internal Medicine Gastroenterology; Nurse Practitioner Family; ADMIT Internal Medicine; ATTEND Internal Medicine
PROC: 0DBH8ZX Excision of Cecum, Via Natural or Artificial Opening Endoscopic, Diagnostic (ICD-10-PCS; principal; 2021-11-25)
PROC: 0DJ08ZZ Inspection of Upper Intestinal Tract, Via Natural or Artificial Opening Endoscopic (ICD-10-PCS; principal; 2021-11-25)
PROC: 5A09357 Assistance with Respiratory Ventilation, Less than 24 Consecutive Hours, Continuous Positive Airway Pressure (ICD-10-PCS; 2021-11-27)
PROC: 5A09357 Assistance with Respiratory Ventilation, Less than 24 Consecutive Hours, Continuous Positive Airway Pressure (ICD-10-PCS; 2021-11-28)
DX: J15.6 Pneumonia due to other Gram-negative bacteria (principal); I21.A1 Myocardial infarction type 2; N17.0 Acute kidney failure with tubular necrosis; J96.01 Acute respiratory failure with hypoxia; I50.23 Acute on chronic systolic (congestive) heart failure; E87.1 Hypo-osmolality and hyponatremia; M62.82 Rhabdomyolysis; J98.11 Atelectasis; I13.0 Hypertensive heart and chronic kidney disease with heart failure and stage 1 through stage 4 chronic kidney disease, or unspecified chronic kidney disease; I42.9 Cardiomyopathy, unspecified; K63.5 Polyp of colon; K64.4 Residual hemorrhoidal skin tags; K64.8 Other hemorrhoids; K44.9 Diaphragmatic hernia without obstruction or gangrene; Z20.822 Contact with and (suspected) exposure to COVID-19; I25.10 Atherosclerotic heart disease of native coronary artery without angina pectoris; E78.5 Hyperlipidemia, unspecified; E86.0 Dehydration; I71.4 Abdominal aortic aneurysm, without rupture; I51.3 Intracardiac thrombosis, not elsewhere classified; D50.9 Iron deficiency anemia, unspecified; F03.90 Unspecified dementia, unspecified severity, without behavioral disturbance, psychotic disturbance, mood disturbance, and anxiety; I71.2 Thoracic aortic aneurysm, without rupture; I27.20 Pulmonary hypertension, unspecified; N18.9 Chronic kidney disease, unspecified; I25.2 Old myocardial infarction; Z95.1 Presence of aortocoronary bypass graft; Z90.49 Acquired absence of other specified parts of digestive tract; Z87.891 Personal history of nicotine dependence; Z79.01 Long term (current) use of anticoagulants; Z23 Encounter for immunization